=== PATIENT | female | born 1995 | race Caucasian/White ===

== ENCOUNTER 2021-02-09 10:13 | Outpatient (CLI) | payer OTHER, SELFPAY ==
[2021-02-09 13:30] LABS: Basophils # 0.1 10^3/uL (0.0-0.1); Basophils % 0.6 %; Eosinophils # 0.1 10^3/uL (0.0-0.8); Eosinophils % 0.7 %; Hematocrit 38.7 % (37.0-47.0); Hemoglobin 12.6 g/dL (11.5-15.3); Lymphocytes # 3.1 10^3/uL (0.8-4.8); Lymphocytes % 35.1 %; Mean Corpuscular HGB Conc 32.6 g/dL (30.0-36.0); Mean Corpuscular Hemoglobin 30.1 pg (28.0-34.0); Mean Corpuscular Volume 92.4 fL (81-99); Mean Platelet Volume 10.8 fL (7.4-10.4); Monocytes # 0.9 10^3/uL (0.2-0.9); Neutrophils # 4.63 10^3/uL (1.8-7.7); Neutrophils % 53.3 %; Nucleated Red Blood Cells % 0 %; Platelet Count 322 10^3/cmm (130-400); Red Blood Count 4.19 10^6/uL (4.1-5.3); Red Cell Distribution Width 12.3 % (12.1-15.1); White Blood Count 8.7 10^3/uL (4.0-10.0)
[2021-02-09 14:07] LABS: Alanine Aminotransferase 11 U/L (0-33); Albumin Level 4.4 g/dL (3.5-5.2); Alkaline Phosphatase 99 IU/L (35-105); Anion Gap 13.8 (5-19); Aspartate Amino Transferase 13 U/L (0-32); Blood Urea Nitrogen 11 mg/dL (6-20); C Reactive Protein 8.7 mg/L (0.0-4.9); Calcium 9.1 mg/dL (8.5-10.5); Carbon Dioxide 25 mmol/L (22-29); Chloride 102 mmol/L (98-107); Globulin 3.6 g/dL (1.3-4.6); Glomerular Filtration Rate 152.9 mL/min (90-130); Glucose 86 mg/dL (65-115); Immunoglobulin IGA 239 mg/dL (70-400); Immunoglobulin IGG 1457 mg/dL (700-1600); Immunoglobulin IGM 68 mg/dL (40-230); Osmolality Calculated 283 mOsm/kg (285-295); Potassium 3.8 mmol/L (3.5-5.1); Sodium 137 mmol/L (136-145); Thyroid Stimulating Hormone 2.15 uIU/mL (0.27-4.20); Total Bilirubin 0.6 mg/dL (0.15-1.2)
[2021-02-09 14:13] LABS: Erythrocyte Sedimentation Rate 20 mm/hr (0-15)
[2021-02-09 14:24] LABS: 25 Hydroxy Vitamin D 14 ng/mL (30-100); Ferritin 30 ng/mL (15-150); Iron 102 ug/dL (37-145); Total Iron Binding Capacity 309 mcg/dl; Unsaturated Iron Binding 207 ug/dL (112-347); Vitamin B12 464 pg/mL (232-1245)
--- NOTE | 2021-02-10 06:52 | ONC CON_ITS ---
Dr. Castillo New Patient Note Patient: Tika Wilson Unit #: [id number]: 1995 Dicatated By: Brock Castillo M.D.Date of Visit: Feb 09, 2021 Onc MED New Patient/Consult Referring Physician: Bruce Mcdonald Chief Complaint: Elevated kappa light chain and iron deficiency. History of Present Illness: This is a 25-year-old woman who is known to have an elevated free kappa light chain. She also was found to have iron deficiency. On 05/13/2020 she had a noncontrast brain MRI for evaluation of worsening headaches. There were no abnormal findings in the brain. However, there was evidence for diffuse low signal intensity of the bone marrow of the calvarium and upper cervical spine. It was noted to be a nonspecific imaging finding with the differential to include reactivation of the bone marrow in a patient with acute or chronic anemia, lymphoreticular disorder such as lymphoma, leukemia or myeloma, or metastatic bone marrow replacement of solid organ tumor. With that finding, she had further evaluation by Dr. Bruce Mcdonald at [facility]. Her laboratory studies on 06/10/2020 included CBC showing hemoglobin 12.7 g, white blood cell count 8400, and platelet count 304,000. Comprehensive metabolic profile showed normal renal function with BUN 8 and creatinine 0.75 mg/dL. The bilirubin and liver enzymes were normal. Her serum protein electrophoresis showed no detectable monoclonal protein and her quantitative immunoglobulin levels were normal. Her serum free light chain assay showed a mildly elevated free kappa light chain at 22.94 mg/L with normal free lambda light chain at 9.77 mg/L and elevated kappa/lambda ratio at 2.35. Her sed rate was normal at 11 mm/h. Her B12 level was normal at 624 pg/mL with folate normal at 12.2 ng/mL. Serum iron was normal at 138 mcg/dL with transferrin saturation normal at 36%. The ferritin level, though, was low at 12 ng/mL. She underwent bone marrow aspiration/biopsy on 07/12/2020. The marrow was normocellular for age at 70% with maturing trilineage hematopoiesis. There was no morphologic or immunophenotypic evidence of malignancy. In particular, the CD138 immunostain revealed scattered positive plasma cells which did not appear increased in number. Iron stores were noted to be decreased. The FISH panel for myeloma was unrevealing and the standard chromosome analysis was normal. With those findings, expectant management was recommended with regard to the MRI findings and elevated kappa free light chain. She did start oral iron supplementation for the iron deficiency. She has recently moved here from [place] and she is seen for her further hematology follow-up. She does complain that she is real fatigued. She has to push herself to do any work. She does try to walk every day. Her ECOG score is 1. She has good appetite. She has had a weight gain in the range of 50 pounds over the past 2 to 3 years. She does not have fever, night sweats, or hot flashes. She continues to have at least a few headaches every week, described as throbbing headaches and mainly around the forehead and eyes. She sometimes has pain in the back of her head and occasionally in her neck and shoulders. She indicates that she has also not been diagnosed with narcolepsy, and she has been on CPAP for obstructive sleep apnea. She tends to get sore throat if she forgets to wear her CPAP. She is sometimes short of breath with activity. She does not complain of cough. She tends to have discomfort in her chest and palpitations when she gets really anxious. She also has nausea when she is anxious or upset. She has indigestion/heartburn if she eats too much. She has chronic constipation. Bladder function has been okay. She does have very heavy periods with associated cramping. She has joint pain, tickly in her ankles and feet, hips, and shoulders. She reports having swelling and pain/stiffness in her hands and swelling in her feet. She occasionally has dizziness or lightheadedness. Her arms and hands sometimes feel numb. She has always bruised easily and she had frequent nosebleeds starting around age 12. That lasted until about age 18. She has anxiety and depression. She was hospitalized with a suicide attempt in August 2020. Past Medical History: Her medical history includes anxiety, chronic headache, chronic urticaria and angioedema, alcohol induced, depression, gastroesophageal reflux disease, narcolepsy, obstructive sleep apnea, seasonal allergies, and supraventricular tachycardia. Past Surgical History: Her surgical/procedural history includes bone marrow aspiration/biopsy in 2019, appendectomy in 2019, colonoscopy in 2019, hemorrhoidetomy in 2017, and wisdom teeth extraction in 2013. Medications: 24HR Allergy Relief (180 mg) Tablet Oral daily, Armodafinil 1 (150 mg) Tablet Oral daily, Ferrous Sulfate (325 (65 fe) mg) Tablet Oral daily, Fiber Powder Oral daily, Polyethylene Glycol 3350 (17 ) Powder Oral daily Allergies: Adhesive Tape, Alcoholic Beverages, Bactrim, and HYDROcodone-Acetaminophen. Social History: Ms. Wilson is single. She is a non-smoker. She has rare alcohol use. Family History: Her mother has celiac disease, hypothyroidism, and anemia. She says her father has health problems, none diagnosed, as he will not seek medical attention. She has one brother who is in good health. A great grandfather on her mother's side had myeloma. Both maternal grandparents had heart disease and diabetes. Review Of Symptoms: Constitutional - She complains that she is real fatigued. She pushes herself to do work activities. She also tries to walk every day. She has good appetite. Over the past 2 to 3 years she has had a weight gain in the range of 50 pounds. She does not have fever, night sweats, or hot flashes. Her ECOG score is 1, Eyes - Her vision has gotten worse during the past year, ENMT - No hearing loss or tinnitus. No sinus congestion/drainage. No mouth sores. She tends to get a sore throat if she does not wear her CPAP at night. No difficulty swallowing, Hematologic/Lymphatic - She is always bruised easily, Respiratory - She is on CPAP for obstructive sleep apnea. She is sometimes short of breath with activity. No cough. No pleuritic pain or hemoptysis, Cardiovascular - When she is anxious she tends to have discomfort in her chest with palpitations and increased heart rate, Gastrointestinal - She gets nauseated when she is anxious or upset. She has indigestion/heartburn if she eats too much. She has chronic constipation. No blood in the stool or black stools, Genitourinary (F) - No dysuria or hematuria. No urinary frequency. No urgency or incontinence. She does have very heavy menstrual periods with associated abdominal cramping, Musculoskeletal - She has joint pain, particularly in her ankles and feet, hips, and shoulders. Her hands/fingers tend to swell and cramp or get stiff and she also complains of swelling in her feet, Integumentary - She has had atypical moles removed. She has mottled skin, mainly involving her legs, Neurologic - She continues to have a least a few headaches every week. It is described as a throbbing headache, mainly around her forehead and eyes and occasionally in the back of her head. The pain sometimes involves her neck and shoulders. She occasionally has dizziness or lightheadedness. She has intermittent numbness in her arms and hands, Psychiatric - She has anxiety and depression. She had a suicide attempt in August 2020. She has been diagnosed with narcolepsy. Vital Signs: Performed on Feb 09, 2021 11:15: 8, 3, 33.09 (HIGH), 1.90 sq.m, 63.5 in, 97 %, 83 /min, 18 /min, 118/81 mm(hg), 98.9 F (HIGH), and 189.8 lbs (HIGH). Physical Examination: Constitutional - She appears to be in good general health, Eyes - Sclerae nonicteric. Conjunctivae clear, ENMT - No lesions noted in the oral cavity, Neck - No mass or thyromegaly, Hematologic/Lymphatic - No cervical, clavicular, or axillary adenopathy, Respiratory - Lungs are clear with good air movement bilaterally, Cardiovascular - Heart rhythm is regular. There is no murmur, gallop, or rub noted. There is no carotid bruit noted, Abdomen - Soft. Liver and spleen are not enlarged. There is no abdominal mass or ascites noted and there is no inguinal adenopathy, Back/Spine - No spine or CVA tenderness noted, Extremities - No edema. Pedal pulses are palpable bilaterally, Integumentary - There is a faint livedo reticularis skin pattern on both legs. There are no suspicious skin lesions noted, Neurologic - No focal neurologic deficits noted. Problem List: 1. Elevated kappa free light chain in association with MRI evidence of diffuse low signal intensity within the bone marrow of the calvarium. The clinical significance of these findings is uncertain. 2. She has iron deficiency as evidenced by low serum ferritin and decreased storage iron in the bone marrow. This is most likely due to menstrual blood loss. She has poor tolerance for oral iron supplements due to severe, chronic constipation. 3. Chronic headache, presumably migraine. 4. GERD. 5. Obstructive sleep apnea. 6. Narcolepsy. 7. Seasonal allergies. 8. History of urticaria and angioedema. 9. History of supraventricular tachycardia. 10. Anxiety and depression. Problems Addressed with this Encounter and Plan: 1. Patient with evated kappa free light chain in association with MRI evidence of diffuse low signal intensity within the bone marrow of the calvarium. Bone marrow aspiration/biopsy on 07/12/2020 showed no evidence of plasma cell dyscrasia or other malignancy. As such, the clinical significance of these findings is uncertain. However, will require ongoing follow-up/surveillance. As it has been a 6-month interval since her last studies, I will recheck her CBC, comprehensive metabolic profile, sed rate and CRP, serum protein electrophoresis, quantitative immunoglobulin levels, and serum free light chain assay. She will have further evaluation as indicated. If the laboratory parameters remained stable, I will continue to follow at 6-month intervals. 2. She has iron deficiency as evidenced by low serum ferritin and decreased storage iron in the bone marrow. This is most likely due to menstrual blood loss. She has poor tolerance for oral iron supplements due to severe, chronic constipation. Thus far she has been just borderline anemic. I also will now recheck her serum iron studies and ferritin. Given her poor tolerance for oral iron, if there is ongoing iron deficiency, I will give her the option to have parenteral iron replacement with either Injectafer or Feraheme. Signed By: Brock Castillo M.D. <<Signature on File>>
[2021-02-10 09:04] LABS: PROTEIN, TOTAL 7.2 g/dL (6.1-8.1)
[2021-02-10 12:12] LABS: KAPPA/LAMBDA LIGHT CHAINS FREE 1.71 (0.26-1.65); LAMBDA LIGHT CHAIN, FREE, SERU 14.6 mg/L (5.7-26.3)
[2021-02-10 15:22] LABS: ALBUMIN 3.8 g/dL (3.8-4.8); ALPHA 1 GLOBULIN 0.3 g/dL (0.2-0.3); ALPHA 2 GLOBULIN 0.7 g/dL (0.5-0.9); BETA 1 GLOBULIN 0.5 g/dL (0.4-0.6); BETA 2 GLOBULIN 0.4 g/dL (0.2-0.5); GAMMA GLOBULIN 1.4 g/dL (0.8-1.7)
[2021-02-13 11:42] LABS: Anti-Nuclear Antibody Screen NEGATIVE (NEGATIVE)
== END 2021-02-09 10:14 | disposition home or self-care (01) ==
LOC: ONCMED 10:19
PROVIDERS: PCP Family Medicine; Visit Provider Internal Medicine Medical Oncology
DX: R76.8 Other specified abnormal immunological findings in serum (principal); D50.9 Iron deficiency anemia, unspecified; K59.09 Other constipation; G43.919 Migraine, unspecified, intractable, without status migrainosus; K21.9 Gastro-esophageal reflux disease without esophagitis; G47.33 Obstructive sleep apnea (adult) (pediatric); G47.419 Narcolepsy without cataplexy; J30.9 Allergic rhinitis, unspecified; L50.9 Urticaria, unspecified; I47.1 Supraventricular tachycardia; F41.9 Anxiety disorder, unspecified; F32.9 Major depressive disorder, single episode, unspecified; Z79.899 Other long term (current) drug therapy
CPT/HCPCS: 36415; 80053; 82306; 82607; 82728; 82784; 83540; 83550; 83883; 84155; 84165; 84443; 85025; 85651; 86038; 86140; 99204

== ENCOUNTER → 2021-02-28 08:26 | Outpatient (BNVA) | payer OTHER, SELFPAY | PROVIDERS: Visit Provider Psychiatry & Neurology Psychiatry | DX: F43.10 Post-traumatic stress disorder, unspecified (principal); F33.1 Major depressive disorder, recurrent, moderate; F41.1 Generalized anxiety disorder | CPT/HCPCS: 90792 ==

== ENCOUNTER → 2021-05-04 11:39 | Outpatient (BNVA) | payer OTHER, SELFPAY | PROVIDERS: Visit Provider Obstetrics & Gynecology | DX: E66.9 Obesity, unspecified (principal); N94.6 Dysmenorrhea, unspecified; N90.89 Other specified noninflammatory disorders of vulva and perineum | CPT/HCPCS: 83036; 83525 ==

== ENCOUNTER → 2021-05-11 11:14 | Outpatient (BNVA) | payer OTHER, SELFPAY | PROVIDERS: Visit Provider Obstetrics & Gynecology | DX: N94.6 Dysmenorrhea, unspecified (principal) | CPT/HCPCS: 76830 ==

== ENCOUNTER → 2021-06-01 14:02 | Outpatient (BNVA) | payer OTHER, SELFPAY | PROVIDERS: PCP Family Medicine; Visit Provider Specialist | DX: G47.411 Narcolepsy with cataplexy (principal); G43.711 Chronic migraine without aura, intractable, with status migrainosus; R00.0 Tachycardia, unspecified | CPT/HCPCS: 99204 ==

== ENCOUNTER → 2021-07-04 08:47 | Outpatient (BNVA) | payer OTHER, SELFPAY | PROVIDERS: PCP Family Medicine; Visit Provider Specialist | DX: G47.419 Narcolepsy without cataplexy (principal); G43.711 Chronic migraine without aura, intractable, with status migrainosus; F43.10 Post-traumatic stress disorder, unspecified; F60.3 Borderline personality disorder; R00.0 Tachycardia, unspecified | CPT/HCPCS: 99214 ==

== ENCOUNTER 2021-07-27 14:07 | Outpatient (CLI) | payer OTHER, SELFPAY ==
--- NOTE | 2021-07-31 07:48 | ONC FU_ITS ---
Dr. Castillo Patient Follow-Up Note Patient: Tika Orellana Unit #: [id number]: 1995 Dicatated By: Brock Castillo M.D.Date of Visit:Jul 27, 2021 Onc Med Follow-up/Prog Note Chief Complaint: Elevated kappa light chain and iron deficiency. History of Present Illness: This is a 25-year-old woman who is known to have an elevated free kappa light chain. She also was found to have iron deficiency. On 05/13/2020 she had a noncontrast brain MRI for evaluation of worsening headaches. There were no abnormal findings in the brain. However, there was evidence for diffuse low signal intensity of the bone marrow of the calvarium and upper cervical spine. It was noted to be a nonspecific imaging finding with the differential to include reactivation of the bone marrow in a patient with acute or chronic anemia, lymphoreticular disorder such as lymphoma, leukemia or myeloma, or metastatic bone marrow replacement of solid organ tumor. With that finding, she had further evaluation by Dr. Bruce Mcdonald at [facility]. Her laboratory studies on 06/10/2020 included CBC showing hemoglobin 12.7 g, white blood cell count 8400, and platelet count 304,000. Comprehensive metabolic profile showed normal renal function with BUN 8 and creatinine 0.75 mg/dL. The bilirubin and liver enzymes were normal. Her serum protein electrophoresis showed no detectable monoclonal protein and her quantitative immunoglobulin levels were normal. Her serum free light chain assay showed a mildly elevated free kappa light chain at 22.94 mg/L with normal free lambda light chain at 9.77 mg/L and elevated kappa/lambda ratio at 2.35. Her sed rate was normal at 11 mm/h. Her B12 level was normal at 624 pg/mL with folate normal at 12.2 ng/mL. Serum iron was normal at 138 mcg/dL with transferrin saturation normal at 36%. The ferritin level, though, was low at 12 ng/mL. She underwent bone marrow aspiration/biopsy on 07/12/2020. The marrow was normocellular for age at 70% with maturing trilineage hematopoiesis. There was no morphologic or immunophenotypic evidence of malignancy. In particular, the CD138 immunostain revealed scattered positive plasma cells which did not appear increased in number. Iron stores were noted to be decreased. The FISH panel for myeloma was unrevealing and the standard chromosome analysis was normal. With those findings, expectant management was recommended with regard to the MRI findings and elevated kappa free light chain. She did start oral iron supplementation for the iron deficiency. I had seen her initially in February 2021 after she had moved here from [place]. She had numerous complaints, the most significant being severe fatigue. At that time she was on CPAP for obstructive sleep apnea, and she had also been diagnosed with narcolepsy. She was having frequent headaches and she is also having fairly generalized joint pain. Her laboratory studies from 02/09/2021 included CBC showing hemoglobin 12.6 g, white blood cell count 8700, and platelet count 322,000. Sed rate was minimally elevated at 20 mm/h, and the CRP was also mildly elevated at 8.7 mg/L.. Comprehensive metabolic profile showed normal renal function with BUN 11 and creatinine 0.5 mg/dL. The bilirubin and liver enzymes were normal. Her serum iron studies showed normal transferrin saturation at 33% with ferritin in the low normal range at 30 ng/mL. Her B12 level was normal at 464 pg/mL. The 25-hydroxy vitamin D level was low at 14 ng/mL. Her ELGIN screen was negative. There was no monoclonal protein detected by serum or urine protein electrophoresis. Her quantitative immunoglobulin levels were normal. Her serum free light chain assay showed elevated free kappa light chain at 25.0 mg/L with free lambda light chain 14.6 mg/L and slightly elevated kappa/lambda ratio at 1.71. With those findings, she began on vitamin D supplementation. She is seen now for a follow-up visit. She has been seeing Dr. Piedra for management of her narcolepsy and her migraine headaches. She had a trial of therapy with Ritalin, which she was not able to tolerate because of side effects. She is now started treatment for her migraine headaches. She continues to have severe fatigue. She says it is hard to do any activity other than work. On her days off she is typically in bed all day. Her ECOG score is 1. Her appetite is okay. She has not had fever. She says she sometimes gets hot at night, occasionally with sweating. She is on CPAP at night, and she sometimes has difficulty breathing. She does not have cough. She sometimes has chest pain, mainly when she is nervous or upset. She has nausea and she has acid reflux. She has chronic constipation, though recently has been a little better. She has no complaints. She continues to have a lot of pain in her back and joints, especially her hips. She also has pain in her neck and shoulders. She has poor mobility. She has headaches on a daily basis. She has some numbness in her arms, but now just occasionally. Medications: 24HR Allergy Relief (180 mg) Tablet Oral daily, Ajovy 1 (225 mg/1.5mL) Subcutaneous q, ALPRAZolam 1 Tablet (of 0.25 mg) Oral daily, Cholecalciferol 1 Tablet (of 50 mcg ) Oral daily, metFORMIN HCl 1 Tablet (of 500 mg) Oral daily, Polyethylene Glycol 3350 (17 ) Powder Oral daily, Propranolol HCl 1 Tablet (of 20 mg) Oral b.i.d. Allergies: Adhesive Tape, Alcoholic Beverages, Bactrim, and HYDROcodone-Acetaminophen. Vital Signs: Performed on Jul 27, 2021 16:25 Height - 63.50 in Weight - 199 lbs (HIGH) BSA - 1.94 sq.m BMI - 34.70 (HIGH) Temperature - 98.8 F Pulse - 86 /min Respiration - 18 /min BP - 115/81 mm(hg) O2 Sat - 99 % Pain - 5 Fatigue - 9 Physical Examination: Constitutional - She does not appear acutely ill, Eyes - Sclerae nonicteric. Conjunctivae clear, ENMT - No lesions noted in the oral cavity, Hematologic/Lymphatic - No cervical, clavicular, or axillary adenopathy, Respiratory - Lungs are clear with good air movement bilaterally, Cardiovascular - Heart rhythm is regular. There is no murmur, gallop, or rub noted, Abdomen - Mildly distended but soft. Liver and spleen are not enlarged. There is no abdominal mass or ascites noted and there is no inguinal adenopathy, Extremities - No edema. Pedal pulses are palpable bilaterally, Neurologic - No focal neurologic deficits noted. Lab/Imaging: Test performed on Feb 09, 2021 12:45 Ferritin 30 ng/mL Iron 102 mcg/dL Sodium 137 mmol/L TSH 2.15 uIU/mL Vitamin B12 464 pg/mL Vitamin D (25-Hydroxy), Total 14 ng/mL Iron Binding Capacity (TIBC) 309 mcg/dl Potassium 3.8 mmol/L % Iron Saturation 33.0 % Chloride 102 mmol/L CO2 25 mmol/L UIBC 207 mcg/dL Anion Gap 13.8 BUN 11 mg/dL Creatinine 0.5 mg/dL Cr Clearance (Est) 237.8300 mL/min eGFR 152.9 mL/min Glucose 86 mg/dL Osmolality - Calculated 283 mOsm/kg Calcium 9.1 mg/dL Protein, Total 8.0 g/dL Albumin 4.4 g/dL Globulin 3.6 g/dL Bilirubin, Total 0.6 mg/dL ALT (SGPT) 11 U/L AST (SGOT) 13 U/L Alkaline Phosphatase 99 IU/L ESR (Sed Rate) 20 mm/hr WBC 8.7 10 3/uL RBC 4.19 10 6/uL HGB 12.6 g/dL HCT 38.7 % MCV 92.4 fL MCH 30.1 pg MCHC 32.6 g/dL RDW 12.3 % Platelet Count 322 10 3/cmm MPV 10.8 fL Neutrophils 4.63 10 3/uL Lymphocytes 3.1 10 3/uL Monocytes 0.9 10 3/uL Eosinophils 0.1 10 3/uL Basophils 0.1 10 3/uL Neutrophil % 53.3 % Lymphocyte % 35.1 % Monocyte % 10.0 % Eosinophil % 0.7 % Basophils % 0.6 % NRBC % 0 % ELGIN NEGATIVE ELGIN IFA is a first line screen for detecting the presence of up to approximately 150 autoantibodies in various autoimmune diseases. A negative ELGIN IFA result suggests an ELGIN-associated autoimmune disease is not present at this time, but is not definitive. If there is high clinical suspicion for Sjogren's syndrome, testing for anti-SS-A/Ro antibody should be considered. Anti-Maura-1 antibody should be considered for clinically suspected inflammatory myopathies. AC-0: Negative International Consensus on ELGIN Patterns (https://doi.org/10.1515/ddrz-9760-7466) For additional information, please refer to http://education.JolieBox.Contorion/faq/OHX486 (This link is being provided for informational/ educational purposes only.) THIS TEST WAS PERFORMED AT: [facility] [address] [address] [place] [address] TARIQ LARA DO,MPH IgG 1457 mg/dL Nina Free Light Chains 25.0 mg/L Lambda Free Light Chains 14.6 mg/L IgA 239 mg/dL Nina/Lambda Free Ratio 1.71 IgM 68 mg/dL Problem List: 1. Elevated kappa free light chain in association with MRI evidence of diffuse low signal intensity within the bone marrow of the calvarium. The clinical significance of these findings is uncertain. 2. She had iron deficiency as evidenced by low serum ferritin and decreased storage iron in the bone marrow, presumed to be due to menstrual blood loss. She had poor tolerance for oral iron supplements due to severe, chronic constipation. 3. Chronic headache, presumably migraine. 4. GERD. 5. Obstructive sleep apnea. 6. Narcolepsy. 7. Seasonal allergies. 8. History of urticaria and angioedema. 9. History of supraventricular tachycardia. 10. Anxiety and depression. Problems Addressed with this Encounter and Plan: 1. Patient with evated kappa free light chain in association with MRI evidence of diffuse low signal intensity within the bone marrow of the calvarium. Bone marrow aspiration/biopsy on 07/12/2020 showed no evidence of plasma cell dyscrasia or other malignancy. As such, the clinical significance of these findings has been uncertain. Her repeat serum free light chain assay showed just slightly elevated free kappa light chain and kappa/lambda ratio. There was no detectable monoclonal protein on serum or urine protein electrophoresis. As such, the clinical significance remains uncertain, but I will repeat her laboratory studies, and she will have further evaluation as indicated. 2. She had iron deficiency as evidenced by low serum ferritin and decreased storage iron in the bone marrow, presumably due to menstrual blood loss. She has poor tolerance for oral iron supplements due to severe, chronic constipation. Thus far she has been just borderline anemic. She will require ongoing monitoring of her blood counts and iron studies. She will be given the option to have parenteral iron replacement, as indicated. Signed By: Brock Castillo M.D. <<Signature on File>>
== END 2021-07-27 14:08 | disposition home or self-care (01) ==
PROVIDERS: PCP Family Medicine; Visit Provider Internal Medicine Medical Oncology
DX: R74.8 Abnormal levels of other serum enzymes (principal); D50.9 Iron deficiency anemia, unspecified; K59.09 Other constipation; G43.919 Migraine, unspecified, intractable, without status migrainosus; K21.9 Gastro-esophageal reflux disease without esophagitis; G47.33 Obstructive sleep apnea (adult) (pediatric); G47.419 Narcolepsy without cataplexy; F41.9 Anxiety disorder, unspecified; F32.9 Major depressive disorder, single episode, unspecified; Z87.2 Personal history of diseases of the skin and subcutaneous tissue; Z86.79 Personal history of other diseases of the circulatory system; Z79.899 Other long term (current) drug therapy
CPT/HCPCS: G0463

== ENCOUNTER 2021-07-31 08:28 | Outpatient (CLI) | payer OTHER, SELFPAY ==
[2021-08-01 14:34] LABS: CREATININE, 24 HOUR URINE 1.21 g/24 h (0.50-2.15); PROTEIN, TOTAL, 24 HR UR 171 mg/24 h (<150); Protein/Creatinine Ratio 0.141 (< OR = 0.114); Protein/Creatinine Ratio 141 mg/g creat (< OR = 114)
[2021-08-02 11:18] LABS: ALBUMIN 0 %; ALPHA-1-GLOBULINS 0 %; ALPHA-2-GLOBULINS 0 %; BETA GLOBULINS 0 %; GAMMA GLOBULINS 0 %
== END 2021-07-31 08:29 ==
LOC: ONCMED 08:30
PROVIDERS: PCP Family Medicine; Visit Provider Internal Medicine Medical Oncology
DX: D50.9 Iron deficiency anemia, unspecified (principal); D80.8 Other immunodeficiencies with predominantly antibody defects
CPT/HCPCS: 84156; 84166

== ENCOUNTER 2021-08-01 06:59 | Outpatient (CLI) | payer OTHER, SELFPAY ==
[2021-08-01 14:49] LABS: Basophils % 0.4 %; Eosinophils # 0.1 10^3/uL (0.0-0.8); Hematocrit 35.5 % (37.0-47.0); Hemoglobin 11.9 g/dL (11.5-15.3); Lymphocytes # 2.9 10^3/uL (0.8-4.8); Mean Corpuscular HGB Conc 33.5 g/dL (30.0-36.0); Mean Corpuscular Hemoglobin 30.3 pg (28.0-34.0); Mean Corpuscular Volume 90.3 fl (81-99); Monocytes # 0.9 10^3/uL (0.2-0.9); Monocytes % 10.6 %; Neutrophils # 4.87 10^3/uL (1.8-7.7); Neutrophils % 54.8 %; Nucleated Red Blood Cells % 0 %; Platelet Count 316 10^3/cmm (130-400); Red Blood Count 3.93 10^6/uL (4.1-5.3); Red Cell Distribution Width 11.9 % (12.1-15.1); White Blood Count 8.9 10^3/uL (4.0-10.0)
[2021-08-01 15:08] LABS: Alanine Aminotransferase 15 U/L (0-33); Albumin Level 3.9 g/dL (3.5-5.2); Alkaline Phosphatase 91 IU/L (35-105); Aspartate Amino Transferase 14 U/L (0-32); Blood Urea Nitrogen 12 mg/dL (6-20); Calcium 9.2 mg/dL (8.5-10.5); Carbon Dioxide 24 mmol/L (22-29); Chloride 102 mmol/L (98-107); Ferritin 28 ng/mL (15-150); Globulin 3.2 g/dL (1.3-4.6); Glomerular Filtration Rate 123.9 mL/min (90-130); Glucose 84 mg/dL (65-115); Iron 59 ug/dL (37-145); Osmolality Calculated 283 mOsm/kg (285-295); Percent Saturation 17.6 % (20-50); Sodium 137 mmol/L (136-145); Total Bilirubin 0.4 mg/dL (0.15-1.2); Total Iron Binding Capacity 335 mcg/dl; Total Protein 7.1 g/dL (6.6-8.7); Unsaturated Iron Binding 276 ug/dL (112-347)
[2021-08-01 15:49] LABS: Immunoglobulin IGA 211 mg/dL (70-400); Immunoglobulin IGG 1338 mg/dL (700-1600); Immunoglobulin IGM 62 mg/dL (40-230)
[2021-08-02 13:37] LABS: ALBUMIN 3.8 g/dL (3.8-4.8); ALPHA 1 GLOBULIN 0.3 g/dL (0.2-0.3); ALPHA 2 GLOBULIN 0.7 g/dL (0.5-0.9); BETA 1 GLOBULIN 0.5 g/dL (0.4-0.6); BETA 2 GLOBULIN 0.4 g/dL (0.2-0.5); GAMMA GLOBULIN 1.4 g/dL (0.8-1.7)
[2021-08-02 13:56] LABS: Erythrocyte Sedimentation Rate 11 mm/hr (0-15)
[2021-08-02 15:44] LABS: KAPPA LIGHT CHAIN, FREE, SERUM 27.2 mg/L (3.3-19.4); LAMBDA LIGHT CHAIN, FREE, SERU 15.1 mg/L (5.7-26.3)
[2021-08-05 15:06] LABS: Vit D 1,25 (Oh)2, Total 36 pg/mL (18-72); Vit D2 1,25 (Oh)2 10 pg/mL; Vit D3 1,25 (Oh)2 26 pg/mL
== END 2021-08-01 07:00 | disposition home or self-care (01) ==
LOC: ONCMED 07:00
PROVIDERS: PCP Family Medicine; Visit Provider Internal Medicine Medical Oncology
DX: E61.1 Iron deficiency (principal); D80.8 Other immunodeficiencies with predominantly antibody defects
CPT/HCPCS: 36415; 80053; 82652; 82728; 82784; 83540; 83550; 83883; 84155; 84165; 85025; 85651; 86141

== ENCOUNTER → 2021-08-17 15:28 | Outpatient (BNVA) | payer OTHER, SELFPAY | PROVIDERS: PCP Family Medicine; Visit Provider Obstetrics & Gynecology | DX: N32.89 Other specified disorders of bladder (principal); R39.89 Other symptoms and signs involving the genitourinary system | CPT/HCPCS: 81000 ==

== ENCOUNTER → 2021-08-31 09:42 | Outpatient (BNVA) | payer OTHER, SELFPAY | PROVIDERS: PCP Family Medicine; Visit Provider Nurse Practitioner Women's Health | DX: N92.6 Irregular menstruation, unspecified (principal) | CPT/HCPCS: 81025 ==

== ENCOUNTER → 2021-09-05 12:59 | Outpatient (BNVA) | payer OTHER, SELFPAY | PROVIDERS: PCP Family Medicine; Visit Provider Specialist | DX: G43.711 Chronic migraine without aura, intractable, with status migrainosus (principal); G47.419 Narcolepsy without cataplexy; F60.3 Borderline personality disorder; F43.10 Post-traumatic stress disorder, unspecified; R00.0 Tachycardia, unspecified | CPT/HCPCS: 99214 ==

== ENCOUNTER → 2021-09-21 10:32 | Outpatient (BNVA) | payer OTHER, SELFPAY | PROVIDERS: PCP Family Medicine; Visit Provider Specialist | DX: G43.711 Chronic migraine without aura, intractable, with status migrainosus (principal); G47.419 Narcolepsy without cataplexy; F60.3 Borderline personality disorder; F43.10 Post-traumatic stress disorder, unspecified | CPT/HCPCS: 64615; J0585 ==

== ENCOUNTER → 2021-10-13 07:59 | Outpatient (BNVA) | payer OTHER, SELFPAY | PROVIDERS: PCP Family Medicine; Visit Provider Obstetrics & Gynecology | DX: Z34.01 Encounter for supervision of normal first pregnancy, first trimester (principal) | CPT/HCPCS: 80307; 82950; 84315; 84443; 85025; 86592; 86762; 86803; 86850; 86900; 87086; 87340; 87491; 87591; 87661 ==

== ENCOUNTER → 2022-01-29 08:34 | Outpatient (BNVA) | payer OTHER, SELFPAY | PROVIDERS: PCP Family Medicine; Visit Provider Obstetrics & Gynecology | DX: O99.019 Anemia complicating pregnancy, unspecified trimester (principal); D50.9 Iron deficiency anemia, unspecified; G47.419 Narcolepsy without cataplexy; F43.10 Post-traumatic stress disorder, unspecified; E66.9 Obesity, unspecified; G43.711 Chronic migraine without aura, intractable, with status migrainosus; K59.09 Other constipation; F32.A Depression, unspecified; R00.0 Tachycardia, unspecified; O99.340 Other mental disorders complicating pregnancy, unspecified trimester; O99.210 Obesity complicating pregnancy, unspecified trimester; O26.899 Other specified pregnancy related conditions, unspecified trimester | CPT/HCPCS: 82950; 84315; 84443; 85025 ==

== ENCOUNTER → 2022-03-26 15:18 | Outpatient (BNVA) | payer OTHER, SELFPAY | PROVIDERS: PCP Family Medicine; Visit Provider Obstetrics & Gynecology | DX: Z34.90 Encounter for supervision of normal pregnancy, unspecified, unspecified trimester (principal) | CPT/HCPCS: 84315; 87081 ==

== ENCOUNTER 2022-04-16 11:07 | Outpatient (CLI) | payer OTHER, SELFPAY ==
[2022-04-16] VITALS (7 sets, daily range): BP systolic 127–138; BP diastolic 71–87; PULSE 82–93; RESP 15–16; TEMP 36.2; BMI 41.7
[2022-04-16] MEDS: acetaminophen 325 mg Tablet 650 MG PO (12:15)
[2022-04-16 12:17] LABS: Basophils % 0.3 %; Eosinophils # 0.1 10^3/uL (0.0-0.8); Eosinophils % 0.5 %; Hematocrit 32.7 % (37.0-47.0); Hemoglobin 11.4 g/dL (11.5-15.3); Lymphocytes # 2.1 10^3/uL (0.8-4.8); Lymphocytes % 23.2 %; Mean Corpuscular HGB Conc 34.9 g/dL (30.0-36.0); Mean Corpuscular Hemoglobin 30.3 pg (28.0-34.0); Mean Platelet Volume 11.6 fL (7.4-10.4); Monocytes % 11.3 %; Neutrophils # 5.93 10^3/uL (1.8-7.7); Neutrophils % 64.2 %; Nucleated Red Blood Cells % 0 %; Platelet Count 228 10^3/cmm (130-400); Red Blood Count 3.76 10^6/uL (4.1-5.3); Red Cell Distribution Width 13.2 % (12.1-15.1); White Blood Count 9.2 10^3/uL (4.0-10.0)
[2022-04-16 12:28] LABS: Glucose Urine UA Norm (Normal); Ketones Urine Negative (Negative); Protein Urine Neg (Negative); Urine Appearance Clear (CLEAR); Urine Color Yellow (Yellow); pH Urine 6 (5-7)
[2022-04-16 12:29] LABS: Bilirubin Urine Neg (Negative); Blood Urine Neg (Negative); Nitrate Urine Negative (Negative); Urobilinogen Urine Norm (Negative)
[2022-04-16 12:31] LABS: Add Urine Culture? No; Leukocyte Esterase Urine Negative (Negative)
[2022-04-16 12:36] LABS: Alanine Aminotransferase 10 U/L (0-33); Albumin Level 3.5 g/dL (3.5-5.2); Alkaline Phosphatase 162 IU/L (35-105); Anion Gap 17.3 (5-19); Aspartate Amino Transferase 13 U/L (0-32); Blood Urea Nitrogen 8 mg/dL (6-20); Calcium 9.4 mg/dL (8.5-10.5); Carbon Dioxide 21 mmol/L (22-29); Chloride 101 mmol/L (98-107); Glomerular Filtration Rate 196.1 mL/min (90-130); Glucose 75 mg/dL (65-115); Osmolality Calculated 277 mOsm/kg (285-295); Potassium 4.3 mmol/L (3.5-5.1); Sodium 135 mmol/L (136-145); Total Bilirubin 0.2 mg/dL (0.15-1.2); Total Protein 6.5 g/dL (6.6-8.7)
[2022-04-16 12:39] LABS: Urine Creatinine 35 mg/dL (28-217); Urine Protein Random 4 mg/dL
[2022-04-16 12:47] LABS: UPRO/UCREAT Ratio 0.11 mg/mg CR
--- NOTE | 2022-04-16 13:00 | P.PCN_ITS ---
Procedure/Consent Procedure Narrative: NONSTRESS TEST: Place of test: [facility]L&D Indication: 26-year-old 1 para 0 at 38 weeks and 4 days, headache Date and time of test: 04/16/2022, 12:30 PM Baseline: 135 Variability: Moderate variability Accelerations: Accelerations present Decelerations: No decelerations Tocometry: No contractions INTERPRETATION: NST reactive, continue kick counts
--- NOTE | 2022-04-16 13:05 | PC.NURSE ---
Patient verbalized all labor/preeclampsia precautions. Patient understands to follow up with Dr. Piedra for headaches that are not related. ELKE MICHEL
== END 2022-04-16 13:04 | disposition home or self-care (01) ==
LOC: OPOB 11:13 → OBGYN 11:14
PROVIDERS: PCP Family Medicine; Visit Provider Obstetrics & Gynecology
DX: O26.899 Other specified pregnancy related conditions, unspecified trimester (principal); Z3A.00 Weeks of gestation of pregnancy not specified; R60.0 Localized edema
CPT/HCPCS: 36415; 59025; 80053; 81001; 82570; 84156; 85025; 99211

== ENCOUNTER 2022-04-20 19:17 | Inpatient (IN) | payer OTHER, SELFPAY ==
[2022-04-20] VITALS (23 sets, daily range): BP systolic 108–138; BP diastolic 56–89; PULSE 85–121; RESP 16; TEMP 36.4; O2SAT 97–99; BMI 41.7
[2022-04-20 20:28] LABS: Basophils % 0.1 %; Eosinophils # 0.1 10^3/uL (0.0-0.8); Eosinophils % 0.6 %; Hematocrit 32.8 % (37.0-47.0); Hemoglobin 11.4 g/dL (11.5-15.3); Lymphocytes # 2.1 10^3/uL (0.8-4.8); Lymphocytes % 23.6 %; Mean Corpuscular HGB Conc 34.8 g/dL (30.0-36.0); Mean Corpuscular Hemoglobin 30.1 pg (28.0-34.0); Mean Corpuscular Volume 86.5 fl (81-99); Mean Platelet Volume 11.1 fL (7.4-10.4); Monocytes # 0.9 10^3/uL (0.2-0.9); Monocytes % 10.5 %; Neutrophils % 64.9 %; Nucleated Red Blood Cells % 0 %; Platelet Count 231 10^3/cmm (130-400); Red Blood Count 3.79 10^6/uL (4.1-5.3); Red Cell Distribution Width 13.3 % (12.1-15.1); White Blood Count 8.9 10^3/uL (4.0-10.0)
[2022-04-20] MEDS: dextrose 5%-lactated ringers 1,000 ML 125 ML IV (20:39)
[2022-04-20] MEDS: miSOPROStol 100 mcg tablet 25 MCG VAGINAL (21:00)
[2022-04-20] MEDS: hyDROXYzine 25 mg Capsule 50 MG PO (23:56)
[2022-04-21] VITALS (128 sets, daily range): BP systolic 83–160; BP diastolic 50–119; PULSE 74–114; RESP 18; TEMP 36.1–36.8; O2SAT 93–99
[2022-04-21] MEDS: dextrose 5%-lactated ringers 1,000 ML 125 ML IV ×4 (01:26→21:13)
[2022-04-21] MEDS: miSOPROStol 100 mcg tablet 25 MCG VAGINAL ×2 (01:30→21:41)
[2022-04-21] MEDS: oxytocin 30 UNIT/500 ML BAG IV (09:38)
--- NOTE | 2022-04-21 11:50 | PM.OPHPUD ---
Labor & Delivery H&P Update Date of Procedure: April 21, 2022 Date H&P Performed: 04/19/22 H&P update information: I have reviewed H&P completed within last 30 days, I have examined patient prior to procedure and No changes to prior documentation Changes to previous documentation: The patient is here for induction of labor at 39 weeks, 1 days Admission Diagnosis:
--- NOTE | 2022-04-21 12:11 | P.PN_ITS ---
Subjective Subjective: The patient received two doses of cytotec overnight. Pitocin was started after breakfast. Vitals/I&O/Wt Last Vital Signs Temp 98.1 F 04/22/22 18:04 Pulse 83 04/22/22 18:01 Resp 18 04/21/22 12:55 BP 109/72 04/22/22 18:01 Pulse Ox 99 04/21/22 12:10 04/22/22 04/22/22 04/22/22 06:59 14:59 22:59 Intake Total 1089.583 / 3625.685 1127.250 / 1127.250 139.5 / 1266.750 Output Total 750 / 3950 1600 / 1600 800 / 2400 Balance 339.583 / -324.315 -472.750 / -472.750 -660.5 / -1133.250 Weight last 48 hrs Weight 243 lb Weight 243 lb Physical Exam Narrative: the patient is tolerating the induction well the baby has overall very reassuring status. Const: COMMON NORMALS: no acute distress, patient oriented x3, no limitations, healthy appearing, alert and well nourished GENERAL APPEARANCE: cooperative, comfortable, well kempt and well developed ORIENTATION/CONSCIOUSNESS: Yes awake, Yes oriented to person, Yes oriented to place and Yes oriented to time Resp: COMMON NORMALS: normal respiratory effort EFFORT & INSPECTION: Yes able to speak in complete sentences GI: COMMON NORMALS: Soft to palpation and non-tender PALPATION: Yes Soft to palpation Extremity: COMMON NORMALS: no calf tenderness Neuro: COMMON NORMALS: patient oriented x3 SENSORIUM/ORIENTATION: Yes alert, Yes oriented to person, Yes oriented to place and Yes oriented to time Psych: APPEARANCE: Yes well kempt Urinary Catheter Management: Guardado: Cath Placed During This Visit: yes Reason for Continuing Indwelling Catheter: Required Immobilization for Trauma or Surgery or Anesthesia Urinary Catheter Date of Insertion: 04/21/22 Urinary Catheter Time of Insertion: 12:36 Data : 04/20/22 20:15 Attestations Medical Necessity Statement*: The patient is having labor induction. She will be present for 2 midnights. 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
--- NOTE | 2022-04-21 12:21 | ANES.PREANE2 ---
Pre-Anesthetic Assessment Height/Weight: Height 1.63 m Weight 110.223 kg Temp Pulse Resp BP Pulse Ox 97.9 F 97 16 131/63 99 04/21/22 08:31 04/21/22 12:18 04/20/22 19:50 04/21/22 12:18 04/21/22 12:10 Preop Diagnosis: Labor pain CHRIST Was Beta Dottie taken within 24 hours: N/A Was Clonidine taken within 24 hours: N/A Social No alcohol and No tobacco Exam alert, oriented x 3, clear to auscultation bilaterally and regular rate & rhythm History/ROS No significant history except as noted and No significant complaints Pulmonary Sleep Apnea CPAP CV/HEM None reported None reported Hepatic None reported GI Gastroesophageal Reflux Disease Metabolic Morbid Obesity Neuropsych Anxiety, Bipolar and Depression Anesthetic Plan ASA status: 2 Anesthesia: Anesthesia Evaluation and Regional (specify below) (CHRIST) Risk of > 500 ml blood loss (7ml/kg in children): No Medications/Allergies Home Medications Medication Instructions Recorded Confirmed Last Taken Type prenat.vits,ana,nyj-fknv-ufyrd 1 tab PO DAILY 08/31/21 04/20/22 04/20/22 09:00 History famotidine 40 mg tablet (Pepcid) 40 mg PO DAILY #30 tab 02/15/22 04/20/22 04/20/22 09:00 Rx ferrous sulfate 325 mg (65 mg 325 mg PO DAILY 02/15/22 04/20/22 04/20/22 09:00 History iron) tablet ondansetron HCl 4 mg tablet 4 mg PO Q6H #30 tab 02/27/22 04/20/22 04/14/22 Rx Allergies Allergy/AdvReac Type Severity Reaction Status Date / Time alcohol Allergy Severe ALGY-Anaphy Verified 04/20/22 20:44 laxis hydrocodone [From [place]a] Allergy Unknown ADR-Nausea Verified 04/20/22 20:44 sulfamethoxazole Allergy Unknown ALGY-Rash Verified 04/20/22 20:44 [From Bactrim] trimethoprim [From Bactrim] Allergy Unknown ALGY-Rash Verified 04/20/22 20:44 adhesive tape AdvReac Mild ALGY-Rash Verified 04/20/22 20:44 Current Medications Generic Name Dose Route Start Last Admin Trade Name Freq PRN Reason Stop Dose Admin Hydroxyzine Pamoate 50 mg 04/20/22 19:49 04/20/22 23:56 Hydroxyzine 25 Mg Capsule PO 50 mg QID PRN Administration sleep, agitation or itching Dextrose/Lactated Ringer's 1,000 mls @ 125 mls/hr 04/20/22 20:00 04/21/22 09:38 Dextrose 5%-Lactated Ringers IV 125 mls/hr .Q8H SHERYL Administration Oxytocin 30 unit in 500 mls @ 1 mls/hr 04/21/22 09:00 04/21/22 11:01 Pitocin IV 5 milliunit/min .Q24H SHERYL 5 mls/hr Titration Protocol 1 MILLIUNIT/MIN PFSH Anesthesia Medical History Anxiety Borderline personality disorder Chronic constipation Depression Idiopathic urticaria Iron deficiency anemia (~2019) managed by Dr. 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 No pertinent past medical history neghx: htn,dm,thyroid,dvt/pe PCP: Obstructive sleep apnea using c-pap PTSD (post-traumatic stress disorder) Sinus tachycardia Vitamin D deficiency Surgical History H/O hemorrhoidectomy H/O wisdom tooth extraction History of bone marrow biopsy (~2019) History of removal of skin mole precancerous mole removals Normal colonoscopy (~2019) with hemorrhoids Family History Mother Hypothyroidism Anemia Celiac disease Grandmother Diabetes Maternal Hyperlipidemia Maternal and paternal Stroke Maternal Grandfather Diabetes Maternal Hyperlipidemia Maternal and paternal Hypertension Maternal and Paternal Stroke Maternal Family/Other Breast cancer great aunt X 2 Colon cancer great uncle and second cousin Denies family history of Ovarian cancer Clotting disorder Chronic kidney disease (CKD) Cancer Uterine cancer Social History Smoking and tobacco status: never smoked Female Reproductive History : 1 Data Anesthesia : 04/20/22 20:15 Short CBC 04/20/22 Range/Units 20:15 WBC 8.9 (4.0-10.0) 10^3/uL Hgb 11.4 L (11.5-15.3) g/dL Hct 32.8 L (37.0-47.0) % MCV 86.5 (81-99) fl Plt Count 231 (130-400) 10^3/cmm Neut % (Auto) 64.9 % Neut # (Auto) 5.80 (1.8-7.7) 10^3/uL Cardiac Studies: No Data to Display
--- NOTE | 2022-04-21 12:25 | P.ANES_ITS ---
Anesthesia Procedures Procedure/Date: 04/21/22 Epidural: Time Out Performed: Yes Consents Signed: Procedure Consent Consent: requested by attending/covering physician and from patient Lumbar Level: L2-L3 Epidural position: sitting Epidural procedure: sterile prep of area, 1% lidocaine to numb the area, 18 g needle, neg for paresthesia, test d ose given, 1.5% xylocaine 1:200k epi (3cc), 0.2% Ropivacaine bolus ml (4cc plus Fentanyl 100 mcg), no systemic response, sterile dressing applied, L.U.D. no apparent complications and 0.2% Ropiavacaine @ mls/hr (13cc/hour)
[2022-04-22] VITALS (85 sets, daily range): BP systolic 94–157; BP diastolic 55–87; PULSE 75–127; RESP 16; TEMP 36.4–37.3; O2SAT 97
[2022-04-22] MEDS: miSOPROStol 100 mcg tablet 25 MCG VAGINAL (02:14)
[2022-04-22] MEDS: hyDROXYzine 25 mg Capsule 50 MG PO ×2 (04:16→21:32)
[2022-04-22] MEDS: dextrose 5%-lactated ringers 1,000 ML 125 ML IV ×4 (05:08→23:20)
[2022-04-22] MEDS: ondansetron 2 mg/ML SDV 2 mL 4 MG IVP ×2 (05:21→21:13)
[2022-04-22] MEDS: oxytocin 30 UNIT/500 ML BAG IV (08:45)
--- NOTE | 2022-04-22 18:07 | P.PN_ITS ---
Subjective Subjective: The patient received two additional doses of cytotec overnight. Her cervix has changed to 3 cm. Baby continues to have overall reassuring status, with periods of decreased variability. Scalp stimulation is always present. Vitals/I&O/Wt Last Vital Signs Temp 98.1 F 04/22/22 18:04 Pulse 83 04/22/22 18:01 Resp 18 04/21/22 12:55 BP 109/72 04/22/22 18:01 Pulse Ox 99 04/21/22 12:10 04/22/22 04/22/22 04/22/22 06:59 14:59 22:59 Intake Total 1089.583 / 3625.685 1127.250 / 1127.250 139.5 / 1266.750 Output Total 750 / 3950 1600 / 1600 800 / 2400 Balance 339.583 / -324.315 -472.750 / -472.750 -660.5 / -1133.250 Weight last 48 hrs Weight 243 lb Weight 243 lb Physical Exam Const: COMMON NORMALS: no acute distress, patient oriented x3, no limitations, alert and well nourished GENERAL APPEARANCE: cooperative, comfortable, well kempt and well developed ORIENTATION/CONSCIOUSNESS: Yes awake, Yes oriented to person, Yes oriented to place and Yes oriented to time Resp: COMMON NORMALS: normal respiratory effort EFFORT & INSPECTION: Yes ab le to speak in complete sentences : MANUAL OB EXAM: dilated 3 cm, effaced 75%, station -2 and other (arom clear fluid) Extremity: COMMON NORMALS: no calf tenderness Neuro: COMMON NORMALS: patient oriented x3 SENSORIUM/ORIENTATION: Yes alert, Yes oriented to person, Yes oriented to place and Yes oriented to time Psych: APPEARANCE: Yes well kempt Urinary Catheter Management: Guardado: Cath Placed During This Visit: yes Reason for Continuing Indwelling Catheter: Required Immobilization for Trauma or Surgery or Anesthesia Urinary Catheter Date of Insertion: 04/21/22 Urinary Catheter Time of Insertion: 12:36 Data : 04/20/22 20:15 Attestations Medical Necessity Statement*: The patient has already been in the hospital for 2 midnights. Coding Level of Care Code Acute Logistics Supervisor for Byron Sosa
--- NOTE | 2022-04-22 21:58 | ANES.PROC ---
Anesthesia Procedures Procedure/Date: 04/22/22 Epidural bolus Procedure Narrative: Called to LDR 4. Pt has been in multiple positions per nursing staff. Pt crying and complaining of Left lower quadrant pain. Pt given 8ml 0.25% Marcaine MPF with 100mcg Fentanyl MPF via epidural after neg heme aspiration. Pt tolerated well and states more comfortable with contractions
[2022-04-23] VITALS (25 sets, daily range): BP systolic 102–148; BP diastolic 48–86; PULSE 70–100; RESP 16–18; TEMP 36.7–37.1; O2SAT 96–98
[2022-04-23] MEDS: lactated ringers 1,000 ML 999 ML IV (00:30)
[2022-04-23] MEDS: famotidine 20 mg/2 mL INJ IVP (00:42)
[2022-04-23] MEDS: metoclopramide 5 mg/mL SDV 2 mL 10 MG IVP (00:42)
[2022-04-23] MEDS: citric acid-sodium citrate 30 mL UDC PO (00:42)
--- NOTE | 2022-04-23 01:01 | PM.PN ---
Subjective Subjective: The patient has progressed to 7//-1 and has not made any further change for several hours. She has begun to feel the pressure of the baby moving down and is extremely uncomfortable, as well as anxious. we have discussed that I would recommend a at this time. We have given it a good try, but there appears to be CPD, with arrest of dilation and descent. She agrees to proceed with a . There is currently a being performed on a different patient. The pitocin will be turned off and we will proceed, when they are finished. status is overall reassuring. Vitals/I&O/Wt Last Vital Signs Temp 98.1 F 04/22/22 18:04 Pulse 90 04/23/22 00:39 Resp 18 04/21/22 12:55 BP 126/82 04/23/22 00:39 Pulse Ox 99 04/21/22 12:10 04/22/22 04/22/22 04/23/22 14:59 22:59 06:59 Intake Total 1127.250 / 7499.709 4691.0 / 2398.250 572.917 / 2971.167 Output Total 1600 / 1600 800 / 2400 Balance -472.750 / -472.750 471.0 / -1.750 572.917 / 571.167 Physical Exam Urinary Catheter Management: Guardado: Cath Placed During This Visit: yes Reason for Continuing Indwelling Catheter: Required Immobilization for Trauma or Surgery or Anesthesia Urinary Catheter Date of Insertion: 04/21/22 Urinary Catheter Time of Insertion: 12:36 Data : 04/20/22 20:15 Attestations Medical Necessity Statement*: 3 midnights already Coding Level of Care Code Acute Federal Mediator for Byron Sosa
--- NOTE | 2022-04-23 02:12 | PM.OP ---
Operative Report Date of procedure: April 23, 2022 Pre-op diagnosis: Preop Diagnosis arrest of descent, CPD Post-op diagnosis: same Post-op diagnosis: same with macrosomia Procedure done: primary Pathology: placenta. not sent to pathology Surgeon: Amber Martin Anesthesia: Other (spinal) Estimated blood loss (mL): 150 IV fluids (mL): 1,300 Urine output (mL): 300 Complications: none Findings: Term male in the ROP presentation normal appearing uterus, tubes and ovaries Condition: stable Disposition: PACU Procedure: The patient was taken to the operating room where spinal anesthesia was administered and found to be adequate. She was prepped and draped in the normal sterile fashion in the dorsal supine position with a leftward tilt. A Pfannenstiel skin incision was made and carried down to the underlying layer of fascia. The fascia was nicked in the midline and extended laterally with the Sommer scissors. The fascia was then tented up and the rectus muscles dissected off sharply. The rectus muscles were and the peritoneum entered bluntly with the digit. The peritoneal incision was extended superiorly and inferiorly with good visualization of the bladder. The Kayode O retractor was placed. It was clear of any bowel or omentum. The bladder flap was created sharply with the Metzenbaum scissors. A low transverse uterine incision was made and carried down to the bag of water. The bag of water was ruptured and the uterine incision extended cephalocaudad. The scalp was grasped and brought through the incision. The nose and mouth were bulb suctioned. The shoulders and body delivered atraumatically. The baby was allowed to rest, while being dried, for 1 minute and then the cord was clamped and cut. The baby was handed to the waiting dredge captain. The placenta was delivered by expression. The uterus was exteriorized and cleared of all clots and debris. The uterine incision was closed with 0 Vicryl in a running fashion. A second imbricating layer of 3-0 Monocryl was used to close the uterus. The bladder flap was closed with 3-0 Monocryl. There was excellent hemostasis. The Kayode O retractor was removed. The uterus was returned to the abdomen. The peritoneum was closed with 3-0 Monocryl, incorporating the rectus muscle. The fascia was closed with 0 Vicryl in 2 separate sutures overlapping in the midline. The skin was closed with absorbable naldo. Apgars on baby 8 at 1 minute and 8 at 5 minutes. weight 10 pounds 1 ounce. Mother was stable post delivery. Baby had a large amount of fluid still in the lungs and decreased O2 saturation. He was taken to the nursery for special care.
[2022-04-23] MEDS: dextrose 5%-lactated ringers 1,000 ML 125 ML IV (06:32)
[2022-04-23] MEDS: ferrous sulfate EC 325 mg Tablet PO ×2 (10:13→17:11)
[2022-04-23] MEDS: docusate sodium 100 mg Capsule PO ×2 (10:13→17:11)
[2022-04-23] MEDS: ketorolac 30 mg/mL INJ IVP ×3 (10:13→22:32)
[2022-04-23] MEDS: prenatal vitamin Capsule 1 CAP PO (10:13)
[2022-04-23 15:37] LABS: Hematocrit 30.3 % (37.0-47.0); Hemoglobin 10.3 g/dL (11.5-15.3); Mean Corpuscular Hemoglobin 29.9 pg (28.0-34.0); Mean Corpuscular Volume 88.1 fl (81-99); Mean Platelet Volume 11.2 fL (7.4-10.4); Platelet Count 197 10^3/cmm (130-400); Red Blood Count 3.44 10^6/uL (4.1-5.3); Red Cell Distribution Width 13.5 % (12.1-15.1); White Blood Count 25.3 10^3/uL (4.0-10.0)
[2022-04-24 04:00] VITALS: BP 117/77; PULSE 86; RESP 16; O2SAT 100
--- NOTE | 2022-04-24 07:08 | PM.PN ---
Subjective Subjective: The patient is doing well this morning. No concerns Vitals/I&O/Wt Last Vital Signs Temp 98.8 F 04/23/22 16:48 Pulse 86 04/24/22 04:00 Resp 16 04/24/22 04:00 BP 117/77 04/24/22 04:00 Pulse Ox 100 04/24/22 04:00 04/23/22 04/24/22 04/24/22 22:59 06:59 14:59 Output Total 1450 / 2225 Balance -1450 / -2225 Physical Exam Const: COMMON NORMALS: no acute distress, patient oriented x3, no limitations, healthy appearing, alert and well nourished GENERAL APPEARANCE: cooperative, comfortable, well kempt and well developed ORIENTATION/CONSCIOUSNESS: Yes awake, Yes oriented to person, Yes oriented to place and Yes oriented to time Resp: COMMON NORMALS: normal respiratory effort EFFORT & INSPECTION: Yes able to speak in complete sentences GI: COMMON NORMALS: Soft to palpation and non-tender PALPATION: Yes Soft to palpation Extremity: COMMON NORMALS: no calf tenderness Neuro: COMMON NORMALS: patient oriented x3 SENSORIUM/ORIENTATION: Yes alert, Yes oriented to person, Yes oriented to place and Yes oriented to time Psych: APPEARANCE: Yes well kempt Urinary Catheter Management: Guardado: Cath Placed During This Visit: yes, but has since been removed by the nurse Reason for Continuing Indwelling Catheter: Decision to DC Catheter Urinary Catheter Date of Insertion: 04/21/22 Urinary Catheter Time of Insertion: 12:36 Date Urinary Catheter Removed: 04/23/22 Time Urinary Catheter Discontinued: 12:08 Data : 04/23/22 15:10 Attestations Medical Necessity Statement*: The patient has been here over 2 midnights Coding Level of Care Code Acute Talent Acquisition Coordinator for Byron Sosa
[2022-04-24 08:10] VITALS: RESP 18
[2022-04-24] MEDS: oxyCODONE-APAP 5-325 mg Tablet PO ×2 (08:10→15:08)
[2022-04-24] MEDS: ferrous sulfate EC 325 mg Tablet PO (08:10)
[2022-04-24] MEDS: docusate sodium 100 mg Capsule PO ×2 (08:10→18:32)
[2022-04-24] MEDS: prenatal vitamin Capsule 1 CAP PO (08:10)
[2022-04-24 10:16] VITALS: BP 119/81; PULSE 96; RESP 20; TEMP 36.8
[2022-04-24 15:08] VITALS: RESP 18
[2022-04-24] MEDS: ibuprofen 800 mg tablet PO ×2 (15:08→21:00)
[2022-04-24 23:31] VITALS: BP 121/86; PULSE 88; TEMP 36.7; O2SAT 97
[2022-04-25 04:00] VITALS: BP 116/81; PULSE 86; TEMP 36.6; O2SAT 98
[2022-04-25 06:29] VITALS: RESP 15
[2022-04-25] MEDS: oxyCODONE-APAP 5-325 mg Tablet PO (06:29)
--- NOTE | 2022-04-25 09:34 | P.PN_ITS ---
Subjective Subjective: The patient reports still having some pain. Otherwise, she is doing well. Baby is having problems with feeding. Vitals/I&O/Wt Last Vital Signs Temp 97.9 F 04/25/22 04:00 Pulse 86 04/25/22 04:00 Resp 15 04/25/22 06:29 BP 116/81 04/25/22 04:00 Pulse Ox 98 04/25/22 04:00 04/24/22 04/25/22 04/25/22 22:59 06:59 14:59 Intake Total 1000 / 1000 Balance 1000 / 1000 Physical Exam Const: COMMON NORMALS: no acute distress, patient oriented x3, no limitations, healthy appearing, alert and well nourished GENERAL APPEARANCE: cooperative, comfortable, well kempt and well developed ORIENTATION/CONSCIOUSNESS: Yes awake, Yes oriented to person, Yes oriented to place and Yes oriented to time Resp: COMMON NORMALS: normal respiratory effort EFFORT & INSPECTION: Yes able to speak in complete sentences GI: COMMON NORMALS: Soft to palpation and non-tender PALPATION: Yes Soft to palpation Extremity: COMMON NORMALS: no calf tenderness Neuro: COMMON NORMALS: patient oriented x3 SENSORIUM/ORIENTATION: Yes alert, Yes oriented to person, Yes oriented to place and Yes oriented to time Psych: APPEARANCE: Yes well kempt Skin: WOUNDS: Yes surgical site (clean/dry/intact) Urinary Catheter Management: Guardado: Cath Placed During This Visit: yes, but has since been removed by the nurse Reason for Continuing Indwelling Catheter: Decision to DC Catheter Urinary Catheter Date of Insertion: 04/21/22 Urinary Catheter Time of Insertion: 12:36 Date Urinary Catheter Removed: 04/23/22 Time Urinary Catheter Discontinued: 12:08 Data : 04/23/22 15:10 A&P Assessment and plan (1) delivery delivered: Plan one more night in the hosptial to get baby feeding well and pain under control plan aman discharge tomorrow Status: Acute Attestations Medical Necessity Statement*: The patient has already been her over 2 midnights. Needs to stay an additional night to get pain managed and baby feeding better. Coding Level of Care Code Acute Senior Web Designer for Chg Fwd Diagnoses delivery delivered O82
[2022-04-25] MEDS: docusate sodium 100 mg Capsule PO ×2 (11:28→17:39)
[2022-04-25] MEDS: prenatal vitamin Capsule 1 CAP PO (11:28)
[2022-04-25] MEDS: ferrous sulfate EC 325 mg Tablet PO ×2 (11:28→17:39)
[2022-04-25] MEDS: ibuprofen 800 mg tablet PO ×3 (11:28→21:04)
[2022-04-25 11:30] VITALS: BP 128/88; PULSE 107; RESP 16; TEMP 36.9; O2SAT 99
[2022-04-25 17:30] VITALS: BP 123/85; PULSE 101; RESP 16; TEMP 36.9
[2022-04-25 22:17] VITALS: BP 153/91; PULSE 102; TEMP 36.6
[2022-04-26 04:00] VITALS: BP 147/72; PULSE 78; TEMP 36.8
[2022-04-26] MEDS: prenatal vitamin Capsule 1 CAP PO (08:21)
[2022-04-26 08:22] VITALS: RESP 16
[2022-04-26] MEDS: oxyCODONE-APAP 5-325 mg Tablet PO (08:22)
[2022-04-26] MEDS: ferrous sulfate EC 325 mg Tablet PO (08:22)
[2022-04-26] MEDS: docusate sodium 100 mg Capsule PO (08:23)
[2022-04-26] MEDS: ibuprofen 800 mg tablet PO (08:23)
[2022-04-26 08:25] VITALS: BP 136/97; PULSE 108; RESP 16; TEMP 37.2
--- NOTE | 2022-04-26 08:25 | P.DS_ITS ---
Discharge Providers Date of Admission: 04/22/22 23:48 Date of Discharge: April 26, 2022 Attending Provider at Admission: Amber Martin MD Attending Provider at Discharge: Amber Martin MD Primary Care Provider: Mcihael Brown MD Diagnoses at Discharge Discharge Diagnosis (1) delivery delivered: Status: Acute Reason for Visit Reason for Visit: IOL Hospital Course Hospital Course The patient was admitted for induction of labor at term. She reached 7 cm dilation and had arrest of dilation. She had a primary . Baby was 10 pounds 1 oz. She did well and was ready for discharge on day #3. Physical Exam Narrative: doing well this morning. No complaints. She is sad that baby has to stay one more night. Const: COMMON NORMALS: no acute distress, patient oriented x3, no limitations, healthy appearing, alert and well nourished GENERAL APPEARANCE: cooperative, comfortable, well kempt and well developed ORIENTATION/CONSCIOUSNESS: Yes awake, Yes oriented to person, Yes oriented to place and Yes oriented to time Resp: COMMON NORMALS: normal respiratory effort EFFORT & INSPECTION: Yes able to speak in complete sentences GI: COMMON NORMALS: Soft to palpation and non-tender PALPATION: Yes Soft to palpation Extremity: COMMON NORMALS: no calf tenderness Neuro: COMMON NORMALS: patient oriented x3 SENSORIUM/ORIENTATION: Yes alert, Yes oriented to person, Yes oriented to place and Yes oriented to time Psych: APPEARANCE: Yes well kempt Skin: WOUNDS: Yes surgical site (clean/dry/intact) Urinary Catheter Management: Guardado: Cath Placed During This Visit: yes, but has since been removed by the nurse Reason for Continuing Indwelling Catheter: Decision to DC Catheter Urinary Catheter Date of Insertion: 04/21/22 Urinary Catheter Time of Insertion: 12:36 Date Urinary Catheter Removed: 04/23/22 Time Urinary Catheter Discontinued: 12:08 Discharge Data Studies Completed and Pending Laboratory Results WBC 25.3 10^3/uL (4.0-10.0) H 04/23/22 15:10 RBC 3.44 10^6/uL (4.1-5.3) L 04/23/22 15:10 Hgb 10.3 g/dL (11.5-15.3) L 04/23/22 15:10 Hct 30.3 % (37.0-47.0) L 04/23/22 15:10 MCV 88.1 fl (81-99) 04/23/22 15:10 MCH 29.9 pg (28.0-34.0) 04/23/22 15:10 MCHC 34.0 g/dL (30.0-36.0) 04/23/22 15:10 RDW 13.5 % (12.1-15.1) 04/23/22 15:10 Plt Count 197 10^3/cmm (130-400) 04/23/22 15:10 MPV 11.2 fL (7.4-10.4) H 04/23/22 15:10 Neut % (Auto) 64.9 % 04/20/22 20:15 Lymph % (Auto) 23.6 % 04/20/22 20:15 [place] % (Auto) 10.5 % 04/20/22 20:15 Eos % (Auto) 0.6 % 04/20/22 20:15 Baso % (Auto) 0.1 % 04/20/22 20:15 Neut # (Auto) 5.80 10^3/uL (1.8-7.7) 04/20/22 20:15 Lymph # (Auto) 2.1 10^3/uL (0.8-4.8) 04/20/22 20:15 Harrison # (Auto) 0.9 10^3/uL (0.2-0.9) 04/20/22 20:15 Eos # (Auto) 0.1 10^3/uL (0.0-0.8) 04/20/22 20:15 Baso # (Auto) 0.0 10^3/uL (0.0-0.1) 04/20/22 20:15 Nucleated RBC % (auto) 0 % 04/20/22 20:15 Nucleated RBCs # 0.0 /100WBC 04/20/22 20:15 Vitals Last Vital Signs Temp 98.2 F 04/26/22 04:00 Pulse 78 04/26/22 04:00 Resp 16 04/26/22 08:22 BP 147/72 04/26/22 04:00 Pulse Ox 99 04/25/22 11:30 Discharge Plan Discharge Patient Disposition: Home Condition: Stable Prescriptions: New docusate sodium 100 mg Capsule 100 mg PO BID Qty: 60 0RF ibuprofen 800 mg Tablet 800 mg PO TID Qty: 30 0RF oxycodone-acetaminophen 5-325 mg Tablet 1 tab PO Q4H PRN (Reason: Moderate To Severe Pain) Qty: 30 0RF Continued prenat.vits,ana,ito-ongn-bqxlx Tablet 1 tab PO DAILY 0RF ferrous sulfate 325 mg (65 mg iron) tablet 325 mg PO DAILY 0RF famotidine [Pepcid] 40 mg tablet 40 mg PO DAILY Qty: 30 6RF ondansetron HCl 4 mg tablet 4 mg PO Q6H Qty: 30 2RF Discharge Orders: Discharge Order (Routine); Ordered 04/26/22 Ordered By: Amber Martin Patient Instructions: Depression (DC), Expression, Collection and Storage of Breast Milk (DC), Bleeding (DC), Preeclampsia and Eclampsia After Delivery (GEN), OB C, OB Discharge Report, OB Food/Drug Interaction Guide, OB Care at Home, Opioid Safety Discharge Attestations Time Spent in Discharge Care*: less than 30 min Quality Metrics Clinical Quality Measures [ No reported AMI, CVA or VTE this stay] Coding Level of Care Code Acute Chg FW DC note Diagnoses delivery delivered O82
[2022-04-26 16:14] VITALS: BP 138/92; PULSE 93; RESP 17; TEMP 36.7; O2SAT 96
[2022-04-26 16:21] VITALS: BP 138/92; PULSE 93; RESP 17; TEMP 36.7; O2SAT 96
== END 2022-04-26 16:23 | disposition home or self-care (01) | DRG 788 ==
LOC: OPOB 19:17 → OBGYN 04-21 09:29
PROVIDERS: Admitting Provider Obstetrics & Gynecology; PCP Family Medicine; Visit Provider Obstetrics & Gynecology
PROC: 10D00Z1 Extraction of Products of Conception, Low, Open Approach (ICD-10-PCS; CPT 59514; principal; 2022-04-23 01:00)
DX: O36.63X0 Maternal care for excessive fetal growth, third trimester, not applicable or unspecified (principal); O33.5XX0 Maternal care for disproportion due to unusually large fetus, not applicable or unspecified; O62.1 Secondary uterine inertia; O62.0 Primary inadequate contractions; O99.344 Other mental disorders complicating childbirth; O99.02 Anemia complicating childbirth; D64.9 Anemia, unspecified; O99.214 Obesity complicating childbirth; Z3A.39 39 weeks gestation of pregnancy; Z37.0 Single live birth; O75.89 Other specified complications of labor and delivery; F41.9 Anxiety disorder, unspecified; F60.3 Borderline personality disorder; K59.09 Other constipation; F32.A Depression, unspecified; D50.9 Iron deficiency anemia, unspecified; G47.33 Obstructive sleep apnea (adult) (pediatric); F43.10 Post-traumatic stress disorder, unspecified
CPT/HCPCS: 36415; 51702; 51798; 59025; 59409; 85025; 85027; 96374; 96376; G0378; J1885; J2274; J2405; J2765; J2795; J3010; J3490

== ENCOUNTER → 2022-05-11 16:13 | Outpatient (BNVA) | payer OTHER, SELFPAY | PROVIDERS: PCP Family Medicine; Visit Provider Obstetrics & Gynecology | DX: R39.9 Unspecified symptoms and signs involving the genitourinary system (principal) | CPT/HCPCS: 81000; 87086 ==

== ENCOUNTER → 2022-08-01 12:06 | Outpatient (BNVA) | payer OTHER, SELFPAY | PROVIDERS: PCP Family Medicine; Visit Provider Family Medicine | DX: M19.90 Unspecified osteoarthritis, unspecified site (principal); Z34.90 Encounter for supervision of normal pregnancy, unspecified, unspecified trimester; D50.9 Iron deficiency anemia, unspecified | CPT/HCPCS: 80053; 85025; 85651; 86140; 86160; 86162; 86235; 86255; 86376 ==

== ENCOUNTER 2022-09-10 12:16 | Outpatient (CLI) | payer OTHER, SELFPAY ==
[2022-09-10 12:42] LABS: Basophils # 0.1 10^3/uL (0.0-0.1); Basophils % 0.5 %; Eosinophils # 0.1 10^3/uL (0.0-0.8); Eosinophils % 1.1 %; Hematocrit 39.4 % (37.0-47.0); Hemoglobin 13.2 g/dL (11.5-15.3); Lymphocytes # 3.1 10^3/uL (0.8-4.8); Lymphocytes % 32.4 %; Mean Corpuscular HGB Conc 33.5 g/dL (30.0-36.0); Mean Corpuscular Hemoglobin 28.9 pg (28.0-34.0); Mean Corpuscular Volume 86.2 fl (81-99); Mean Platelet Volume 10.5 fL (7.4-10.4); Monocytes # 0.9 10^3/uL (0.2-0.9); Monocytes % 9.1 %; Neutrophils # 5.47 10^3/uL (1.8-7.7); Neutrophils % 56.6 %; Nucleated Red Blood Cells % 0 %; Platelet Count 350 10^3/cmm (130-400); Red Blood Count 4.57 10^6/uL (4.1-5.3); Red Cell Distribution Width 12.4 % (12.1-15.1); White Blood Count 9.7 10^3/uL (4.0-10.0)
[2022-09-10 13:03] LABS: Alanine Aminotransferase 27 U/L (0-33); Albumin Level 4.1 g/dL (3.5-5.2); Alkaline Phosphatase 118 U/L (35-105); Anion Gap 13.7 (5-19); Aspartate Amino Transferase 22 U/L (0-32); Blood Urea Nitrogen 8 mg/dL (6-20); Calcium 9.5 mg/dL (8.5-10.5); Carbon Dioxide 22 mmol/L (22-29); Chloride 100 mmol/L (98-107); Ferritin 34 ng/mL (15-150); Glomerular Filtration Rate 151.6 mL/min (90-130); Glucose 79 mg/dL (65-115); Iron 116 ug/dL (37-145); Osmolality Calculated 271 mOsm/kg (285-295); Percent Saturation 37.2 % (20-50); Potassium 3.7 mmol/L (3.5-5.1); Sodium 132 mmol/L (136-145); Total Bilirubin 0.8 mg/dL (0.15-1.2); Total Iron Binding Capacity 311 mcg/dl; Total Protein 8.1 g/dL (6.6-8.7); Unsaturated Iron Binding 195 ug/dL (112-347)
[2022-09-10 13:16] LABS: Immunoglobulin IGA 251 mg/dL (70-400); Immunoglobulin IGG 1640 mg/dL (700-1600); Immunoglobulin IGM 69 mg/dL (40-230)
[2022-09-11 07:08] LABS: PROTEIN, TOTAL 7.7 g/dL (6.1-8.1)
[2022-09-11 12:34] LABS: KAPPA LIGHT CHAIN, FREE, SERUM 28.3 mg/L (3.3-19.4); KAPPA/LAMBDA LIGHT CHAINS FREE 1.78 (0.26-1.65); LAMBDA LIGHT CHAIN, FREE, SERU 15.9 mg/L (5.7-26.3)
[2022-09-11 15:44] LABS: ALPHA 1 GLOBULIN 0.3 g/dL (0.2-0.3); ALPHA 2 GLOBULIN 0.8 g/dL (0.5-0.9); BETA 1 GLOBULIN 0.6 g/dL (0.4-0.6); BETA 2 GLOBULIN 0.5 g/dL (0.2-0.5); GAMMA GLOBULIN 1.5 g/dL (0.8-1.7)
== END 2022-09-10 12:17 | disposition home or self-care (01) ==
LOC: LAB 12:19
PROVIDERS: PCP Family Medicine; Visit Provider Internal Medicine Medical Oncology
DX: D64.9 Anemia, unspecified (principal)
CPT/HCPCS: 36415; 80053; 82728; 82784; 83540; 83550; 83883; 84155; 84165; 85025

== ENCOUNTER → 2022-12-18 11:38 | Outpatient (BNVA) | payer OTHER, SELFPAY | PROVIDERS: PCP Family Medicine; Visit Provider Internal Medicine | DX: L40.9 Psoriasis, unspecified (principal); F32.A Depression, unspecified; R70.0 Elevated erythrocyte sedimentation rate; R77.8 Other specified abnormalities of plasma proteins; R41.89 Other symptoms and signs involving cognitive functions and awareness; M25.50 Pain in unspecified joint | CPT/HCPCS: 72202; 73120 ==

== ENCOUNTER 2022-12-19 08:34 | Outpatient (CLI) | payer OTHER, SELFPAY ==
[2022-12-19 09:25] LABS: Erythrocyte Sedimentation Rate 23 mm/hr (0-15)
[2022-12-19 09:40] LABS: Add Urine Microscopic? NO; Charge for UA Resulting for Rev
[2022-12-19 09:46] LABS: Bilirubin Urine Neg (Negative); Blood Urine Neg (Negative); Glucose Urine UA Norm (Normal); Ketones Urine 1+ (Negative); Leukocyte Esterase Urine Negative (Negative); Nitrate Urine Negative (Negative); Protein Urine Neg (Negative); Urine Appearance Clear (CLEAR); Urine Color Yellow (Yellow); Urobilinogen Urine Norm (Negative); pH Urine 5 (5-7)
[2022-12-19 10:05] LABS: 25 Hydroxy Vitamin D 20 ng/mL (30-100); C Reactive Protein 6.9 mg/L (0.0-4.9); Creatine Phosphokinase 72 U/L (26-192); Thyroid Stimulating Hormone 0.02 uIU/mL (0.27-4.20); Vitamin B12 540 pg/mL (232-1245)
[2022-12-19 10:10] LABS: Cortisol Random 9.71 ug/dL (2.47-19.5); Hepatitis B Core AB, Total Non-Reactive (Nonreactive); Hepatitis B Surface Antigen Non-Reactive (Nonreactive); Hepatitis C Virus Antibody Non-Reactive (Nonreactive)
[2022-12-20 13:30] LABS: Cyclic Citrullinated Peptide <16 UNITS
[2022-12-21 16:05] LABS: Immunoglobulin A 236 mg/dL (47-310)
[2022-12-22 03:49] LABS: Gliadin Ab.IgA <1.0 U/mL; Gliadin Ab.IgG <1.0 U/mL
[2022-12-22 04:14] LABS: Tissue Transglutaminase IgA Ab <1.0 U/mL; Tissue transglutaminase Ab.IgG <1.0 U/mL
[2022-12-24 03:06] LABS: Vitamin B1(Thiamin) Plas/Ser 12 nmol/L (8-30)
[2022-12-24 10:44] LABS: Quantiferon Mitogen 8.85 IU/mL; Quantiferon Nil 0.02 IU/mL; Quantiferon TB Gold NEGATIVE (NEGATIVE)
== END 2022-12-19 08:35 | disposition home or self-care (01) ==
LOC: LAB 08:37
PROVIDERS: PCP Family Medicine; Visit Provider Internal Medicine
DX: F32.A Depression, unspecified (principal)
CPT/HCPCS: 36415; 81003; 82306; 82533; 82550; 82607; 82784; 83516; 84425; 84443; 85651; 86140; 86200; 86431; 86480; 86704; 86803; 87340

== ENCOUNTER → 2022-12-31 15:07 | Outpatient (BNVA) | payer OTHER, SELFPAY | PROVIDERS: PCP Family Medicine; Visit Provider Family Medicine | DX: R79.89 Other specified abnormal findings of blood chemistry (principal) | CPT/HCPCS: 84439; 84443; 84481 ==

== ENCOUNTER 2023-03-26 07:36 | Outpatient (CLI) | payer OTHER, SELFPAY ==
[2023-03-26 09:03] LABS: Free T4 Free Thyroxine 1.11 ng/dL (0.82-1.77)
[2023-03-28 03:49] LABS: T3 Total 156 ng/dL (76-181)
[2023-03-28 09:59] LABS: Thyroglobulin AB 2 IU/mL (< or = 1)
[2023-03-29 19:10] LABS: TSH Receptor Binding Antibody <1.00 IU/L (< OR = 2.00)
== END 2023-03-26 07:37 | disposition home or self-care (01) ==
PROVIDERS: PCP Family Medicine; Visit Provider Internal Medicine
DX: E05.90 Thyrotoxicosis, unspecified without thyrotoxic crisis or storm (principal)
CPT/HCPCS: 36415; 83516; 84439; 84443; 84480; 86800

== ENCOUNTER → 2023-04-26 09:00 | Outpatient (BNVA) | payer OTHER, SELFPAY | PROVIDERS: PCP Family Medicine; Visit Provider Obstetrics & Gynecology | DX: Z34.90 Encounter for supervision of normal pregnancy, unspecified, unspecified trimester (principal) | CPT/HCPCS: 88175 ==

== ENCOUNTER → 2023-10-18 07:53 | Outpatient (BNVA) | payer OTHER, SELFPAY | PROVIDERS: PCP Family Medicine; Visit Provider Nurse Practitioner Women's Health | DX: Z34.90 Encounter for supervision of normal pregnancy, unspecified, unspecified trimester (principal); N92.6 Irregular menstruation, unspecified; R30.0 Dysuria; F41.9 Anxiety disorder, unspecified | CPT/HCPCS: 81025; 84315; 87077; 87086; 87184 ==

== ENCOUNTER → 2023-11-14 13:53 | Outpatient (BNVA) | payer OTHER, SELFPAY | PROVIDERS: PCP Family Medicine; Visit Provider Nurse Practitioner Women's Health | DX: Z36.87 Encounter for antenatal screening for uncertain dates (principal) | CPT/HCPCS: 76801; 84315; 87086 ==

== ENCOUNTER → 2023-11-26 11:43 | Outpatient (BNVA) | payer OTHER, SELFPAY | PROVIDERS: PCP Family Medicine; Visit Provider Internal Medicine | DX: E07.9 Disorder of thyroid, unspecified (principal); E05.90 Thyrotoxicosis, unspecified without thyrotoxic crisis or storm; L50.1 Idiopathic urticaria; Z34.90 Encounter for supervision of normal pregnancy, unspecified, unspecified trimester | CPT/HCPCS: 36415; 84439; 84443 ==

== ENCOUNTER → 2023-11-28 15:51 | Outpatient (BNVA) | payer OTHER, SELFPAY | PROVIDERS: PCP Family Medicine; Visit Provider Obstetrics & Gynecology | DX: Z34.90 Encounter for supervision of normal pregnancy, unspecified, unspecified trimester (principal) | CPT/HCPCS: 80307; 81000; 82950; 84315; 85025; 86592; 86762; 86803; 86850; 86900; 87340; 87806 ==

== ENCOUNTER → 2023-12-06 09:22 | Outpatient (BNVA) | payer OTHER, SELFPAY | PROVIDERS: PCP Family Medicine; Visit Provider Obstetrics & Gynecology | DX: O09.899 Supervision of other high risk pregnancies, unspecified trimester (principal); Z3A.00 Weeks of gestation of pregnancy not specified | CPT/HCPCS: 84315; 87491; 87591 ==

== ENCOUNTER → 2024-01-03 07:55 | Outpatient (BNVA) | payer OTHER, SELFPAY | PROVIDERS: PCP Family Medicine; Visit Provider Nurse Practitioner Women's Health | DX: Z34.90 Encounter for supervision of normal pregnancy, unspecified, unspecified trimester (principal) | CPT/HCPCS: 84315; 87086 ==

== ENCOUNTER → 2024-02-06 14:20 | Outpatient (BNVA) | payer OTHER, SELFPAY | PROVIDERS: PCP Family Medicine; Visit Provider Obstetrics & Gynecology | DX: Z34.92 Encounter for supervision of normal pregnancy, unspecified, second trimester (principal) | CPT/HCPCS: 76805 ==

== ENCOUNTER → 2024-02-10 07:54 | Outpatient (BNVA) | payer OTHER, SELFPAY | PROVIDERS: PCP Family Medicine; Visit Provider Obstetrics & Gynecology | DX: O09.899 Supervision of other high risk pregnancies, unspecified trimester (principal); Z3A.20 20 weeks gestation of pregnancy | CPT/HCPCS: 84315; 85025 ==

== ENCOUNTER → 2024-03-04 08:09 | Outpatient (BNVA) | payer OTHER, SELFPAY | PROVIDERS: PCP Family Medicine; Visit Provider Nurse Practitioner Women's Health | DX: Z34.90 Encounter for supervision of normal pregnancy, unspecified, unspecified trimester (principal) | CPT/HCPCS: 82950; 84315 ==

== ENCOUNTER → 2024-04-02 07:50 | Outpatient (BNVA) | payer OTHER, SELFPAY | PROVIDERS: PCP Family Medicine; Visit Provider Obstetrics & Gynecology | DX: O09.899 Supervision of other high risk pregnancies, unspecified trimester (principal); O34.219 Maternal care for unspecified type scar from previous cesarean delivery; R82.71 Bacteriuria; E05.90 Thyrotoxicosis, unspecified without thyrotoxic crisis or storm; E66.9 Obesity, unspecified; O09.291 Supervision of pregnancy with other poor reproductive or obstetric history, first trimester; Z30.2 Encounter for sterilization; F32.A Depression, unspecified; Z3A.28 28 weeks gestation of pregnancy | CPT/HCPCS: 81000; 85025 ==

== ENCOUNTER → 2024-04-30 11:03 | Outpatient (BNVA) | payer OTHER, SELFPAY | PROVIDERS: PCP Family Medicine; Visit Provider Obstetrics & Gynecology | DX: O09.899 Supervision of other high risk pregnancies, unspecified trimester (principal); Z3A.32 32 weeks gestation of pregnancy | CPT/HCPCS: 76816; 84315 ==

== ENCOUNTER → 2024-05-25 13:24 | Outpatient (BNVA) | payer OTHER, SELFPAY | PROVIDERS: PCP Family Medicine; Visit Provider Obstetrics & Gynecology | DX: O09.899 Supervision of other high risk pregnancies, unspecified trimester (principal); Z3A.36 36 weeks gestation of pregnancy | CPT/HCPCS: 76816; 84315; 87081 ==

== ENCOUNTER 2024-06-15 05:51 | Inpatient (IN) | payer OTHER, SELFPAY ==
--- NOTE | 2024-06-11 13:10 | ANES.PREANE2 ---
Pre-Anesthetic Assessment Height/Weight: Height 1.6 m Operation Date: 06/15/24 07:20 Proposed Procedures p Section Repeat With Tubal 50716, 68703, O34.219, Z30.2(Not Applicable) - Mike Anguiano MD Familial anesthetic complications: None Was Beta Dottie taken within 24 hours: N/A Was Clonidine taken within 24 hours: N/A Social No alcohol and No tobacco Exam alert, oriented x 3, clear to auscultation bilaterally and regular rate & rhythm Airway Mallampati: Class III Dentition: full Pulmonary Sleep Apnea GI Gastroesophageal Reflux Disease Metabolic Morbid Obesity and Thyroid Disease Anesthetic Plan ASA status: 3 Anesthesia: Regional (specify below) (spinal) Risk of > 500 ml blood loss (7ml/kg in children): No Medications/Allergies Home Medications Medication Instructions Recorded Confirmed Last Taken Type prenat.vits,ana,kwc-hsdg-gxgqf 1 tab PO DAILY 08/31/21 06/11/24 04/20/22 09:00 History CPAP #1 ea 02/07/23 06/11/24 Unknown Rx famotidine 10 mg tablet (Pepcid AC) 10 mg PO DAILY 11/14/23 06/11/24 Unknown History levothyroxine 25 mcg tablet See Rx Instructions .Route 03/18/24 06/11/24 Unknown Rx .COMPLEX #94 tabs Allergies Allergy/AdvReac Type Severity Reaction Status Date / Time alcohol Allergy Severe ALGY-Anaphy Verified 05/28/24 08:20 laxis hydrocodone [From [place]] Allergy Unknown ADR-Nausea Verified 05/28/24 08:20 sulfamethoxazole Allergy Unknown ALGY-Rash Verified 05/28/24 08:20 [From Bactrim] trimethoprim [From Bactrim] Allergy Unknown ALGY-Rash Verified 05/28/24 08:20 adhesive tape AdvReac Mild ALGY-Rash Verified 05/28/24 08:20 [facility] Anesthesia 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 Castillo Idiopathic urticaria Anxiety Depression Narcolepsy diagnosed in a sleep lab, precancerous moles. 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 Martin at [facility] for arrest of descent, CPD, macrosomia Normal colonoscopy (~2019) with hemorrhoids H/O wisdom tooth extraction H/O hemorrhoidectomy History of bone marrow biopsy (~2019) History of removal of skin mole precancerous mole removals Family History Mother Hypothyroidism Anemia Celiac disease Grandmother Diabetes Maternal Hyperlipidemia Maternal and paternal Stroke Maternal Grandfather Diabetes Maternal Hyperlipidemia Maternal and paternal Hypertension Maternal and Paternal Stroke Maternal Family/Other Breast cancer great aunt X 2 Colon cancer great uncle and second cousin Denies family history of Ovarian cancer Clotting disorder Chronic kidney disease (CKD) Cancer Uterine cancer Social History Smoking and tobacco/nicotine status: never used tobacco/nicotine Data Anesthesia Cardiac Studies: No Data to Display
[2024-06-15] VITALS (15 sets, daily range): BP systolic 87–144; BP diastolic 60–89; PULSE 59–109; RESP 16–18; TEMP 36.3–36.9; O2SAT 97–99; BMI 43.0
[2024-06-15] MEDS: lactated ringers 1,000 ML 999 ML IV (06:25)
[2024-06-15 06:27] LABS: Basophils % 0.4 %; Eosinophils # 0.1 10^3/uL (0.0-0.8); Eosinophils % 1.2 %; Hematocrit 37.3 % (36-47); Lymphocytes # 2.7 10^3/uL (0.8-4.8); Lymphocytes % 24.2 %; Mean Corpuscular Hemoglobin 30.9 pg (27-33); Mean Corpuscular Volume 90.8 fl (85-98); Mean Platelet Volume 12.3 fL (7.4-10.4); Monocytes # 1.1 10^3/uL (0.2-0.9); Monocytes % 9.6 %; Neutrophils # 7.04 10^3/uL (1.8-7.7); Neutrophils % 64.1 %; Nucleated Red Blood Cells % 0 %; Platelet Count 190 10^3/cmm (157-399); Red Blood Count 4.11 10^6/uL (3.85-5.65); Red Cell Distribution Width 13.1 % (12.1-15.1); White Blood Count 10.96 10^3/uL (3.29-11.43)
[2024-06-15] MEDS: famotidine 20 mg/2 mL INJ IVP (07:00)
[2024-06-15] MEDS: metoclopramide 5 mg/mL SDV 2 mL 10 MG IVP (07:00)
[2024-06-15] MEDS: ceFAZolin 2,000 mg SDV 2000 MG IVP (07:30)
[2024-06-15] MEDS: BUPIVACAINE LIPOSOME/PF 266 MG, BUPivacaine 0.25% 30 ML in sodium chloride 0.9% 50 ML INFILTRATI (08:57)
--- NOTE | 2024-06-15 09:40 | P.ANESUD_ITS ---
Pre-Anesthetic Update Pre-Anesthetic Assessment: Date of Surgery/Procedure: 06/15/24 Preop Betzy gnosis: IUP Proposed Procedure: Operation Date: 06/15/24 07:20 Proposed Procedures p Section Repeat With Tubal 02416, 66282, O34.219, Z30.2(Not Applicable) - Mike Anguiano MD Any changes to Pre-Anesthetic Assessment?: No Changes from Pre- Anesthetic Assessment: None Last Intake: Intake Last Liquid Date 06/14/24 Last Liquid Time 18:00 Last Solid Date 06/14/24 Last Solid Time 18:00 Labs Last 48hrs: Short CBC 06/15/24 Range/Units 06:15 WBC 10.96 (3.29-11.43) 10^ 3/uL Hgb 12.70 (11.27-16.99) g/ dL Hct 37.3 (36-47) % MCV 90.8 (85-98) fl Plt Count 190 (157-399) 10^3/c mm Neut % (Auto) 64.1 % Neut # (Auto) 7.04 (1.8-7.7) 10^3/u L Blood Bank 06/15/24 06:15 Blood Type O Positive Rho(D) Type Rh positive Antibody Screen Negative Vitals: Temperature 97.3 F L 06/15/24 05:57 Pulse Rate 96 06/15/24 06:46 Pulse Rhythm Regular 06/15/24 06:32 Pulse Strength 3+ Normal 06/15/24 06:32 Respiratory Effort Spontaneous, Non- Labored 06/15/24 06:32 Respiratory Depth Normal 06/15/24 06:32 Respiratory Patter n Normal 06/15/24 06:32 Blood Pressure 111/68 06/15/24 06:46 Oxygen Delivery Me thod Room Air 06/15/24 06:32 Exam: Pre-Anes Outpt Exam: alert, oriented x 3, clear to auscultation bilaterally and regular rate & rhythm Cardiac Studies: No Data to Display
--- NOTE | 2024-06-15 09:42 | P.OP_ITS ---
Operative Report Date of procedure: June 15, 2024 Pre-op diagnosis: Previous delivery Desire permanent sterilization Term macrosomia Post-op diagnosis: same Procedure done: Repeat low-transverse delivery Bilateral salpingectomy Specimens removed/disposition: Left and right fallopian tube Surgeon: Mike Anguiano MD Estimated blood loss (mL): 800 IV fluids (mL): 100 Urine output (mL): 200 Findings: Male weight 4060 g Apgars 8/9 Procedure: After assuring informed consent, the patient was taken to the operating room and anesthesia was initiated. She was placed in the dorsal supine position with a left lateral tilt. The abdomen was prepped and draped in the usual sterile manner. A time-out procedure was performed. Preop antibiotics was administered. A Pfannenstiel skin incision was made with the scalpel and carried through to the underlying layer of fascia with the Bovie. The fascia was nicked in the midline and the incision extended laterally with the Sommer scissors. The superior aspect of the fascial incision was then grasped with Richard clamps and elevated and the underlying rectus muscle dissected off bluntly and sharp with sommer scissors dense adhesions. Attention was then turned to the inferior aspect of the incision which, in similar fashion, was grasped and tented up with Richard clamps and the rectus muscle dissected bluntly. The rectus muscles were then in the midline and the peritoneum identified, tented up and entered sharply with Metzenbaum scissors. The peritoneal incision was then extended superiorly and inferiorly with good visualization of the bladder. The Kayode O retractor was then inserted and the vesicouterine peritoneum identified, grasped with pickups and entered sharply with Metzenbaum scissors. This incision was then extended laterally and the bladder flap created digitally. The uterus incised in a low transverse fashion with the scalpel. The uterine incision was then extended with the bandage scissors. The infant was then delivered in the cephalic presentation atraumatically at 0832. The nose and the mouth were suctioned with bulb and the cord clamped and cut. The cord was normal and had three vessels. Amniotic fluid was clear. The placenta was then removed manually and the uterus exteriorized and cleared of all clots and debris. The uterine incision was repaired with 0 Vicryl in a running-locked fashion. A second layer of the same suture was used to obtain excellent hemostasis. The gutters were cleared of all clots. The left fallopian tube was identified and grasped with a Ashley clamp. The tube was then followed out to the fimbria. An avascular midsection of the fallopian tube was grasped with a Ashley clamp. With the LigaSure fine device the tube was clamped, sealed and transected at the cornua. The specimen was sent to pathology. Excellent hemostasis was noted. The same procedure was performed on the opposite fallopian tube. The uterus was then returned to the abdomen. The rectus muscles were approximated with 2-0 Vicryl. The fascia was reapproximated with 0 Vicryl in an interrupted running fashion. The the Exparel was infiltrated in the adipose tissue for pain management. Adipose layer was approximated with 3-0 Vicryl. The skin was closed with Insorb?s subcuticular ab sorbable naldo. The patient tolerated the procedure well. The sponge, lap and needle counts were correct times three.
--- NOTE | 2024-06-15 10:15 | ANE.PACU2 ---
Inpatient post-anesthesia follow up: Airway intact: Yes Vital signs: Temperature 97.3 F Pulse Rate 96 Respiratory Rate 16 Blood Pressure 116/72 Pulse Oximetry Oxygen Delivery Me thod Room Air Oxygen Flow Rate Fraction of Inspir ed Oxygen Hydration adequate: Yes Nausea and vomiting: No Pain level: 1 Mental status: Baseline
[2024-06-15] MEDS: ketorolac 30 mg/mL INJ IVP ×2 (15:45→21:50)
[2024-06-15 21:30] LABS: Hematocrit 31.9 % (36-47); Mean Corpuscular HGB Conc 33.5 g/dL (30-55); Mean Corpuscular Hemoglobin 30.9 pg (27-33); Mean Corpuscular Volume 92.2 fl (85-98); Platelet Count 159 10^3/cmm (157-399); Red Blood Count 3.46 10^6/uL (3.85-5.65); Red Cell Distribution Width 13.1 % (12.1-15.1); White Blood Count 12.77 10^3/uL (3.29-11.43)
[2024-06-15] MEDS: docusate sodium 100 mg Capsule PO (21:50)
[2024-06-16] MEDS: ketorolac 30 mg/mL INJ IVP (03:38)
[2024-06-16 04:00] VITALS: BP 125/87; PULSE 93; RESP 16; TEMP 36.9; O2SAT 98
[2024-06-16] MEDS: PRENATAL VIT NO.130/IRON/FOLIC 1 EACH TABLET PO (10:39)
[2024-06-16] MEDS: ferrous sulfate EC 325 mg Tablet PO ×2 (10:39→18:17)
[2024-06-16] MEDS: docusate sodium 100 mg Capsule PO ×2 (10:40→18:16)
[2024-06-16] MEDS: famotidine 20 mg Tablet 10 MG PO (10:40)
[2024-06-16] MEDS: levothyroxine 25 mcg Tablet PO (10:40)
[2024-06-16] MEDS: acetaminophen 325 mg Tablet 650 MG PO ×2 (10:47→18:17)
[2024-06-16 10:50] VITALS: BP 115/81; PULSE 91
[2024-06-16 16:40] VITALS: BP 137/83; PULSE 92; RESP 17; TEMP 36.9
--- NOTE | 2024-06-16 18:46 | P.PN_ITS ---
Subjective 2 Subjective: Mrs. Mendoza 28-year-old female status post repeat low-transverse delivery and bilateral salpingectomy. Refers feeling good and and pain under control. Vitals/I&O/Wt Last Vital Signs Temp 98.5 F 06/16/24 04:00 Pulse 91 06/16/24 10:50 Resp 16 06/16/24 04:00 BP 115/81 06/16/24 10:50 Pulse Ox 98 06/16/24 04:00 O2 Del Method Room Air 06/16/24 04:00 06/16/24 06/16/24 06/16/24 06:59 14:59 22:59 Output Total 2100 / 4150 Balance -2100 / -3150 Weight last 48 hrs Weight 113.852 kg Physical Exam 2 Narrative: GA; alert and oriented x 3 HEENT: normal Breasts: engorged Nipples - skin intact Lungs; clear to auscultation Heart: regular rhythm, no murmurs. Abd: Appropriately tender. BS+. Uterine fundus below umbilicus. No Fundal Tenderness, minimal incision tenderness, incision clean and dry, no redness, pain or edema Perineum: normal lochia. Extremities: no edema, no cyanosis, no tenderness. Urinary Catheter Management: Guardado: Cath Placed During This Visit: yes, but has since been removed by the nurse Reason for Continuing Indwelling Catheter: Decision to DC Catheter Urinary Catheter Date of Insertion: 06/15/24 Urinary Catheter Time of Insertion: 08:15 Date Urinary Catheter Removed: 06/15/24 Time Urinary Catheter Discontinued: 23:30 Data 06/15/24 20:31 A&P Assessment and plan (1) delivery, delivered, current hospitalization: Mrs. Mendoza is a 28-year-old female G2, P2 status post repeat low-transverse delivery and bilateral salpingectomy postop day 1. Overnight observation uneventful. She is afebrile and hemodynamically stable. Tolerating diet well. Ambulating without difficulty. Plan Continue postop observation. Encourage ambulation. Attestations 2 Medical Necessity Statement*: In my professional opinion per admitting diagnosis Coding Level of Care Code Acute Code for Chg Fwd Diagnoses delivery, delivered, current hospitalization O82
[2024-06-16] MEDS: ibuprofen 800 mg tablet PO (21:13)
[2024-06-16 21:22] VITALS: BP 127/82; PULSE 102; RESP 16; TEMP 36.8; O2SAT 97
[2024-06-17 04:00] VITALS: BP 125/78; PULSE 92; RESP 16; TEMP 36.6; O2SAT 99
[2024-06-17 08:56] VITALS: RESP 16
[2024-06-17] MEDS: oxyCODONE-APAP 5-325 mg Tablet PO (08:56)
[2024-06-17] MEDS: ibuprofen 800 mg tablet PO (08:57)
[2024-06-17] MEDS: PRENATAL VIT NO.130/IRON/FOLIC 1 EACH TABLET PO (08:57)
[2024-06-17] MEDS: docusate sodium 100 mg Capsule PO (08:57)
[2024-06-17] MEDS: ferrous sulfate EC 325 mg Tablet PO (08:57)
[2024-06-17] MEDS: levothyroxine 25 mcg Tablet PO (08:57)
--- NOTE | 2024-06-17 09:04 | PM.OBGYDC ---
Discharge Providers HEALTHCARE RECEPTIONIST Date of Admission: 06/15/24 05:51 Date of Discharge: 06/17/24 Attending Provider at Admission: Mike Anguiano MD Attending Provider at Discharge: Mike Anguiano MD Primary Care Provider: Michael Brown MD Diagnoses at Discharge Discharge Diagnosis (1) delivery, delivered, current hospitalization: Status: Acute Reason for Visit Reason for Visit: Epi Consult Hospital Course Hospital Course Mrs. Mendoza 28-year-old female G2, P1 admitted to labor and delivery for repeat low-transverse delivery, complicated by macrosomia. She is status post repeat low-transverse delivery and bilateral salpingectomy. She is afebrile and hemodynamically stable postoperative day 2. /postop observation have been uneventful. Tolerating diet well. Ambulating without difficulty. Normal lochia. She was counseled regarding pelvic rest for 6 weeks (no sex, no tampons, no vaginal douches). Return to the emergency room if any fever, increased bleeding or pain. Information Peripartum Data: Infant Delivery Method: Physical Exam Narrative: GA; alert and oriented x 3 HEENT: normal Breasts: engorged Nipples - skin intact Lungs; clear to auscultation Heart: regular rhythm, no murmurs. Abd: Appropriately tender. BS+. Uterine fundus below umbilicus. No Fundal Tenderness, minimal incision tenderness, incision clean and dry, no redness, pain or edema Perineum: normal lochia. Extremities: no edema, no cyanosis, no tenderness. Urinary Catheter Management: Guardado: Cath Placed During This Visit: yes, but has since been removed by the nurse Reason for Continuing Indwelling Catheter: Decision to DC Catheter Urinary Catheter Date of Insertion: 06/15/24 Urinary Catheter Time of Insertion: 08:15 Date Urinary Catheter Removed: 06/15/24 Time Urinary Catheter Discontinued: 23:30 History History History 2 Term 1 0 Miscarriages/Ectopic 0 Living Children 1 Discharge Data Studies Completed and Pending Pending at discharge Category Date Time Status Pathology: Surgical [PTH] Stat Pth 06/15/24 13:17 Received Laboratory Results WBC 12.77 10^3/uL (3.29-11.43) H 06/15/24 20:31 RBC 3.46 10^6/uL (3.85-5.65) L 06/15/24 20:31 Hgb 10.70 g/dL (11.27-16.99) L 06/15/24 20:31 Hct 31.9 % (36-47) L 06/15/24 20:31 MCV 92.2 fl (85-98) 06/15/24 20:31 MCH 30.9 pg (27-33) 06/15/24 20:31 MCHC 33.5 g/dL (30-55) 06/15/24 20:31 RDW 13.1 % (12.1-15.1) 06/15/24 20:31 Plt Count 159 10^3/cmm (157-399) 06/15/24 20:31 MPV 12.0 fL (7.4-10.4) H 06/15/24 20:31 Neut % (Auto) 64.1 % 06/15/24 06:15 Lymph % (Auto) 24.2 % 06/15/24 06:15 [place] % (Auto) 9.6 % 06/15/24 06:15 Eos % (Auto) 1.2 % 06/15/24 06:15 Baso % (Auto) 0.4 % 06/15/24 06:15 Neut # (Auto) 7.04 10^3/uL (1.8-7.7) 06/15/24 06:15 Lymph # (Auto) 2.7 10^3/uL (0.8-4.8) 06/15/24 06:15 [place] # (Auto) 1.1 10^3/uL (0.2-0.9) H 06/15/24 06:15 Eos # (Auto) 0.1 10^3/uL (0.0-0.8) 06/15/24 06:15 Baso # (Auto) 0.0 10^3/uL (0.0-0.1) 06/15/24 06:15 Nucleated RBC % (auto) 0 % 06/15/24 06:15 Nucleated RBCs # 0.0 /100WBC 06/15/24 06:15 Blood Type O Positive 06/15/24 06:15 Rho(D) Type Rh positive 06/15/24 06:15 Antibody Screen Negative 06/15/24 06:15 Vitals Last Vital Signs Temp 97.8 F 06/17/24 04:00 Pulse 92 06/17/24 04:00 Resp 16 06/17/24 08:56 BP 125/78 06/17/24 04:00 Pulse Ox 99 06/17/24 04:00 O2 Del Method Room Air 06/17/24 04:00 Results Labs OB ([facility]): Obstetrics US 05/25/24 Blood Type O Positive 06/15/24 Antibody Screen Negative 06/15/24 Hct 31.9 % (36-47) L 06/15/24 Hgb 10.70 g/dL (11.27-16.99) L 06/15/24 Rho(D) Type Rh positive 06/15/24 Plt Count 159 10^3/cmm (157-399) 06/15/24 Hep Bs Antigen Non-reactive (Nonreactive) 11/28/23 Hep B Core Total Ab Non-reactive (Nonreactive) 12/19/22 Hepatitis C Antibody Non-reactive (Nonreactive) 11/28/23 Rubella IgG Antibody 78.1 IU/mL (0.0-10.0) H 11/28/23 RPR Nonreactive (Nonreactive) 11/28/23 HIV 1&2 Ab & HIV 1 Ag Non-reactive (Non-Reactiv) 11/28/23 TSH 1.17 uIU/mL (0.27-4.20) 11/26/23 Free T4 1.30 ng/dL (0.82-1.77) 11/26/23 C.trachomatis RNA (TMA) Not detected (NOT DETECTED) 12/06/23 N.gonorrhoeae RNA (TMA) Not detected (NOT DETECTED) 12/06/23 T. vaginalis Amp RNA Not detected (NOT DETECTED) 12/06/23 Chlamydia/GC Comment See note 12/06/23 Gest Glucose Tolerance 136 mg/dL (70-139) 03/04/24 Hemoglobin A1c 4.8 % (4.0-6.0) 05/04/21 HCG, Qual Positive (Negative) H 10/18/23 Urine Opiates Screen Negative ng/mL (Negative) 11/28/23 Ur Barbiturates Screen Negative ng/mL (Negative) 11/28/23 Ur Phencyclidine Scrn Negative ng/mL (Negative) 11/28/23 Ur Amphetamines Screen Negative ng/mL (Negative) 11/28/23 U Benzodiazepines Scrn Negative ng/mL (Negative) 11/28/23 Urine Cocaine Screen Negative ng/mL (Negative) 11/28/23 U Marijuana (THC) Screen Negative ng/mL (Negative) 11/28/23 Micro Urine Specimen 01/03/24 Pap Smear Interpret See note 04/26/23 Discharge Plan Discharge Patient Disposition: Home Condition: Stable Prescriptions: New Endocet 5-325 mg tablet 1 tab PO Q6H PRN (Reason: Postoperative pain) Qty: 30 0RF ferrous sulfate [Iron (ferrous sulfate)] 325 mg (65 mg iron) tablet 325 mg PO BID Qty: 60 1RF acetaminophen 325 mg capsule 325 mg PO Q4H PRN (Reason: fever or postoperative pain) Qty: 60 0RF docusate sodium [Colace] 100 mg capsule 100 mg PO BID Qty: 60 0RF ibuprofen 800 mg tablet 800 mg PO TID PRN (Reason: pain) Qty: 60 0RF Continued prenat.vits,ana,yyy-kuzw-iyrnj Tablet 1 tab PO DAILY (DME) CPAP Device See Rx Instructions .Route Qty: 1 0RF Rx Instructions: As directed famotidine [Pepcid AC] 10 mg tablet 10 mg PO DAILY levothyroxine 25 mcg tablet See Rx Instructions .ROUTE .COMPLEX Qty: 94 1RF Dose Instruction: Take 1 tablet by mouth once daily Rx Instructions: Take 1 tablet Saturday-Saturday and 2 tabs on Saturday Discharge Orders: Discharge Order (Routine); Ordered 06/17/24 Ordered By: Mike Anguiano Referrals: Mike nAguiano MD [Physician] - 2 weeks Discharge Diet: Usual diet Discharge Activity: Limit activity as instructed Patient Instructions: Depression (DC), Opioid Safety (DC), Preeclampsia and Eclampsia After Delivery (GEN), Hemorrhage (DC), OB [facility], OB Discharge Report, OB Food/Drug Interaction Guide, Opioid Safety, OB Home Care, Abnormal Bleeding Activity Restrictions/Additional Instructions: 1. Please call [facility] on next working day to make your post-operative appointment in 2 weeks. 2. Please stay home until you come back to the clinic on first post-hospatilization check up. 3. Please follow instructions on your medications CAREFULLY. 4. If you have abdominal incision, do not cover it unless dressing is necessary because of drainage. OK to shower, but avoid bath. Leave steri-strips until they fall off. If they are still on one week after surgery, you may remove them. 5. If you had vaginal surgery or vaginal repair, Dr. Anguiano may instruct you to take SITZ bath. 6. Yellow, blood tinged odorous vaginal discharge is usually normal after hysterectomy or vaginal surgeries. 7. No SEXUAL INTERCOURSE, tampons, or douches until you are completely released from the post-operative care. 8. Avoid constipation by eating right and maybe using some Metamucil or Milk of Magnesia. 9. All prescription refills are given during the working hours. Please do no wait till it runs out. Call the clinic at [phone] before your medication runs out. The clinic will get in touch with your doctor to prescribe medications if necessary. 10. Please remain within 40 mile radius from our hospital because emergencies do happen now and then during the post-operative period. 11. If you have stairs at home, take one step at a time slowly and minimize the number of trips. It helps to stay in one floor for the next few days. No lifting except what you can lift by one hand until you are released from the post-operative care. 12. Driving is discouraged until you are well healed. It may be 3-4 weeks before you feel strong enough to drive. You should be able to turn and look through the rear window without pain and you should be able to push the brake pedal very hard without pain before you drive. No fast rules, but SAFETY should be your primary concern. DO NOT drive if you are on sedating medications such as narcotics. 13. Call the clinic (during working hours) to make urgent appointment or go to the Emergency room, if any of the following occurs: i. Vaginal bleeding becomes heavy, more than a period. ii. Incision becomes red and sore, or drains pus. iii. Your TEMPERATURE is over 100.4F or you have chill. iv. IV site becomes red and swollen (a little ``knot?? is usually OK) v. Persistent nausea and vomiting vi. Persistent constipation or diarrhea vii. Rash or allergic reaction to medications. Discharge Attestations HEALTHCARE RECEPTIONIST Time Spent in Discharge Care*: greater than 30 min Coding Level of Care Code Acute Code for Chg Fwd Diagnoses delivery, delivered, current hospitalization O82
[2024-06-17 10:14] VITALS: BP 125/88; PULSE 68; RESP 16; TEMP 37
[2024-06-17 12:15] VITALS: BP 128/84; PULSE 90; RESP 17; TEMP 36.9
== END 2024-06-17 12:37 | disposition home or self-care (01) | DRG 785 ==
PROVIDERS: Admitting Provider Obstetrics & Gynecology; PCP Family Medicine; Visit Provider Obstetrics & Gynecology
PROC: 10D00Z1 Extraction of Products of Conception, Low, Open Approach (ICD-10-PCS; CPT 59514; principal; 2024-06-15 07:00)
DX: O66.2 Obstructed labor due to unusually large fetus (principal); O99.284 Endocrine, nutritional and metabolic diseases complicating childbirth; E02 Subclinical iodine-deficiency hypothyroidism; O99.824 Streptococcus B carrier state complicating childbirth; O34.211 Maternal care for low transverse scar from previous cesarean delivery; N85.8 Other specified noninflammatory disorders of uterus; Z3A.38 38 weeks gestation of pregnancy; Z37.0 Single live birth; O75.89 Other specified complications of labor and delivery; G47.33 Obstructive sleep apnea (adult) (pediatric); O99.62 Diseases of the digestive system complicating childbirth; K21.9 Gastro-esophageal reflux disease without esophagitis
CPT/HCPCS: 36415; 51702; 59025; 59409; 85025; 85027; 86850; 86900; 88302; 96374; 96376; 98960; C9290; J0690; J1885; J2274; J2405; J2765; J3010; J3490; J7030; J7120

== ENCOUNTER 2024-10-02 11:08 | Outpatient (CLI) | payer OTHER, SELFPAY ==
[2024-10-02 11:51] LABS: Free T4 Free Thyroxine 1.24 ng/dL (0.82-1.77); Thyroid Stimulating Hormone 1.25 uIU/mL (0.27-4.20)
== END 2024-10-02 11:09 | disposition home or self-care (01) ==
LOC: LAB 11:09
PROVIDERS: PCP Family Medicine; Visit Provider Internal Medicine
DX: E07.9 Disorder of thyroid, unspecified (principal); E05.90 Thyrotoxicosis, unspecified without thyrotoxic crisis or storm
CPT/HCPCS: 84439; 84443

== ENCOUNTER → 2025-01-04 15:05 | Outpatient (BNVA) | payer OTHER, SELFPAY | PROVIDERS: PCP Family Medicine; Visit Provider Internal Medicine Rheumatology | DX: Z79.899 Other long term (current) drug therapy (principal) | CPT/HCPCS: 36415; 72072; 72100; 80076; 82565; 85025; 85651; 86140 ==

== ENCOUNTER 2025-01-07 08:03 | Oncology outpatient (recurring) (ONCR) | payer OTHER, SELFPAY ==
--- NOTE | 2025-01-07 09:06 | PC.PHAR ---
ALCOHOL ALLERGY: PATIENT REPORTS ANAPHYLACTIC REACTION TO DRINKING ALCOHOL. THIS IS FLAGGING AN INTERACTION WITH DHE AND KETOROLAC. I LOOKED THIS UP IN [facility] AND FOUND NO DRUG/DRUG INTERACTIONS BETWEEN ALCOHOL & DHE NOR ALCOHOL AND KETOROLAC. PATIENT WILL BE PRETREATED WITH BENADRYL
[2025-01-07] MEDS: ondansetron 2 mg/ML SDV 2 mL 4 MG IVP ×2 (09:23→10:25)
[2025-01-07] MEDS: diphenhydrAMINE 50 mg/mL SDV 1mL 25 MG IVP (09:24)
[2025-01-07] MEDS: dihydroergotamine 1 mg/mL Inj 0.5 MG IVP ×2 (09:34→09:57)
[2025-01-07 10:37] VITALS: BP 108/81; PULSE 73; RESP 18; TEMP 36.6; O2SAT 98
--- NOTE | 2025-01-07 15:10 | PC.NURSE ---
Patient presented for dihydroergotamine (DHE) treatment for migraine headaches per Dr. Piedra. Upon arrival patient stated her pain was a 3 out of 10. Per protocol, Zofran and Benadryl were administered. After five minutes, at 09:34, the first dose of DHE (0.5 mg) was administered over five minutes intravenous push. Patient began to get nauseated and stated her pain level was still at a 3 out of 10 after the fifteen minute wait per protocol. At 09:57 the second 0.5 mg DHE dose was administered. At 10:00 patient began to vomit. After trying to call Dr. Piedra's office and not receiving and answer I was able to Webex message her medical receptionist, Anya Lawrence, to relay the message of Mrs. Tika Mendoza and inquire on further instruction and order. After Mrs. Mendoza stopped vomiting she stated her pain was a 1 out of 10. While waiting reply from Dr. Piedra's office, Mrs. Mendoza stated her pain was a 0 out of 10. After relaying that information to Dr. Piedra she ordered stop of the DHE, another dose of Zofran, and to discharge the patient.
== END 2025-02-01 23:59 | disposition home or self-care (01) ==
LOC: ONCMED 08:06
PROVIDERS: PCP Family Medicine; Visit Provider Specialist
DX: G43.711 Chronic migraine without aura, intractable, with status migrainosus (principal); Z79.899 Other long term (current) drug therapy
CPT/HCPCS: 96374; 96375; 96376; J1110; J1200; J2405

== ENCOUNTER 2025-01-15 12:00 | Outpatient (RCR) | payer OTHER, SELFPAY | END 2025-02-01 23:59 | disposition home or self-care (01) | LOC: SPT 12:00 | PROVIDERS: PCP Family Medicine; Visit Provider Family Medicine | DX: M54.9 Dorsalgia, unspecified (principal); G89.29 Other chronic pain | CPT/HCPCS: 97110; 97161 ==

== ENCOUNTER 2025-02-02 05:00 | Outpatient (RCR) | payer OTHER, SELFPAY | END 2025-03-03 23:59 | disposition home or self-care (01) | LOC: SPT 05:00 | PROVIDERS: PCP Family Medicine; Visit Provider Family Medicine | DX: M54.9 Dorsalgia, unspecified (principal); G89.29 Other chronic pain | CPT/HCPCS: 97110 ==

== ENCOUNTER 2025-02-08 10:15 | Outpatient (CLI) | payer OTHER, SELFPAY ==
[2025-02-08 10:50] LABS: Basophils # 0.1 10^3/uL (0.0-0.1); Basophils % 0.7 %; Eosinophils # 0.1 10^3/uL (0.0-0.8); Eosinophils % 1.3 %; Hematocrit 44.4 % (36-47); Lymphocytes # 2.3 10^3/uL (0.8-4.8); Lymphocytes % 22.2 %; Mean Corpuscular HGB Conc 32.7 g/dL (30-55); Mean Corpuscular Hemoglobin 28.9 pg (27-33); Mean Corpuscular Volume 88.4 fl (85-98); Mean Platelet Volume 10.5 fL (7.4-10.4); Monocytes % 9.6 %; Neutrophils # 6.81 10^3/uL (1.8-7.7); Neutrophils % 65.8 %; Nucleated Red Blood Cells % 0 %; Platelet Count 302 10^3/cmm (157-399); Red Blood Count 5.02 10^6/uL (3.85-5.65); Red Cell Distribution Width 12.3 % (12.1-15.1); White Blood Count 10.34 10^3/uL (3.29-11.43)
[2025-02-08 11:15] LABS: Alanine Aminotransferase 22 U/L (0-33); Albumin Level 4.4 g/dL (3.5-5.2); Alkaline Phosphatase 91 U/L (35-105); Aspartate Amino Transferase 16 U/L (0-32); C Reactive Protein 9.1 mg/L (0.0-4.9); Globulin 3.7 g/dL (1.3-4.6); Glomerular Filtration Rate 119.9 mL/min (90-130); Total Bilirubin 0.6 mg/dL (0.15-1.2); Total Protein 8.1 g/dL (6.6-8.7)
[2025-02-08 11:32] LABS: Erythrocyte Sedimentation Rate 28 mm/hr (0-15)
== END 2025-02-08 10:16 | disposition home or self-care (01) ==
PROVIDERS: PCP Family Medicine; Visit Provider Internal Medicine Rheumatology
DX: Z79.899 Other long term (current) drug therapy (principal)
CPT/HCPCS: 36415; 80076; 82565; 85025; 85651; 86140

== ENCOUNTER 2025-03-04 06:30 | Outpatient (RCR) | payer OTHER, SELFPAY | END 2025-03-11 14:36 | disposition home or self-care (01) | LOC: SPT 06:30 | PROVIDERS: PCP Family Medicine; Visit Provider Family Medicine | DX: M54.9 Dorsalgia, unspecified (principal); G89.29 Other chronic pain | CPT/HCPCS: 97110 ==

== ENCOUNTER → 2025-05-20 15:00 | Outpatient (BNVA) | payer OTHER, SELFPAY | PROVIDERS: PCP Family Medicine; Visit Provider Family Medicine | DX: R10.9 Unspecified abdominal pain (principal); R11.10 Vomiting, unspecified | CPT/HCPCS: 80053; 83690; 85025 ==